=== PATIENT | male | born 1955 | race Caucasian/White ===

== ENCOUNTER → 2017-11-02 16:44 | Outpatient (CLI) | payer OTHER, SELFPAY ==
[2017-11-02 18:01] LABS: Absolute Lymphocyte Count 0.97 X10^3/ul (0.83-4.51); Absolute Neutrophil Count 2.5 X10^3/uL (2.0-7.7); Basophil# 0.01 X10^3/uL; Basophil% 0.3 % (0-1); Eosinophil# 0.09 X10^3/uL; Eosinophils% 2.3 % (0-5); Hematocrit 49.6 % (40-54); Hemoglobin 16.3 g/dl (13.0-16.5); Lymphocyte # 0.97 X10^3/ul (4.0); Lymphocyte % 24.6 % (19-41); Mean Corp Hgb Conc 32.9 g/gl (32-36); Mean Corpuscular Volume 91.2 fL (80-94); Mean Platelet Vol. 9.8 fl (6.2-12.0); Monocyte# 0.32 X10^3/uL; Monocyte% 8.1 % (0-10); Neutrophil # 2.54 X10^3/uL (2.7-7.7); Neutrophil % 64.4 % (47-70); Platelet Count 200 K/mm3 (150-450); RBC Distribution Width CV 14.3 % (11.6-14.6); RBC Distribution Width SD 46.8 fl (35.1-43.9); Red Blood Count 5.44 M/mm3 (4.6-6.2); White Blood Count 3.9 K/mm3 (4.4-11.0)
[2017-11-02 18:21] LABS: ALB/GLOB Ratio 0.7 RATIO (0.9-2.4); AST(SGOT) 25 U/L (15-37); Alanine Aminotransfer ALT/SGPT 32 U/L (16-61); Albumin, Serum 3.6 g/dL (3.2-5.0); Alkaline Phosphatase 69 U/L (45-117); Anion Gap 6 (5-15); BUN 16 mg/dL (7-18); BUN/Creat Ratio 13.7 RATIO (10-20); Calcium,Total 9.5 mg/dL (8.5-10.1); Chloride 103 mmol/L (98-107); Creatinine, Serum 1.17 mg/dL (0.70-1.30); EST Glomerular Filtration Rate 67 mL/min (>60); Est Glom Filt Rate - Afr Amer 81 mL/min (>60); Globulin 4.9 g/dL (2.2-4.2); Glucose 74 mg/dL (74-106); Potassium 4.3 mmol/L (3.5-5.1); Protein, Total 8.5 g/dL (6.4-8.2); Sodium Level 137 mmol/L (136-145)
[2017-11-02 18:22] LABS: POSITIVE COUNT NO; POSITIVE DIFFERENTIAL NO; POSITIVE MORPHOLOGY NO
== END ==
PROVIDERS: Family Provider Internal Medicine; PCP Internal Medicine; Visit Provider Internal Medicine Rheumatology
DX: M06.4 Inflammatory polyarthropathy (principal); Z79.899 Other long term (current) drug therapy; K50.90 Crohn's disease, unspecified, without complications; H18.51 Endothelial corneal dystrophy
CPT/HCPCS: 36415; 80053; 85025

== ENCOUNTER → 2018-01-27 16:14 | Outpatient (CLI) | payer OTHER, SELFPAY ==
[2018-01-27 17:36] LABS: Absolute Lymphocyte Count 1.06 X10^3/ul (0.83-4.51); Basophil# 0.02 X10^3/uL; Basophil% 0.4 % (0-1); Eosinophils% 2.2 % (0-5); Hematocrit 46.3 % (40-54); Hemoglobin 16.1 g/dl (13.0-16.5); Lymphocyte # 1.06 X10^3/ul (4.0); Lymphocyte % 22.8 % (19-41); Mean Corp Hgb Conc 34.8 g/gl (32-36); Mean Corpuscular Hgb 31.6 pg (27.0-32.0); Mean Platelet Vol. 9.5 fl (6.2-12.0); Monocyte% 10.8 % (0-10); Neutrophil # 2.95 X10^3/uL (2.7-7.7); Neutrophil % 63.6 % (47-70); Platelet Count 209 K/mm3 (150-450); RBC Distribution Width SD 45.7 fl (35.1-43.9); Red Blood Count 5.09 M/mm3 (4.6-6.2); White Blood Count 4.6 K/mm3 (4.4-11.0)
[2018-01-27 17:37] LABS: POSITIVE COUNT NO; POSITIVE DIFFERENTIAL NO; POSITIVE MORPHOLOGY NO
[2018-01-27 17:47] LABS: ALB/GLOB Ratio 0.9 RATIO (0.9-2.4); AST(SGOT) 26 U/L (15-37); Alanine Aminotransfer ALT/SGPT 26 U/L (16-61); Albumin, Serum 3.8 g/dL (3.2-5.0); Alkaline Phosphatase 67 U/L (45-117); Anion Gap 8 (5-15); BUN 18 mg/dL (7-18); BUN/Creat Ratio 19.2 RATIO (10-20); Chloride 105 mmol/L (98-107); Creatinine, Serum 0.94 mg/dL (0.70-1.30); EST Glomerular Filtration Rate 87 mL/min (>60); Est Glom Filt Rate - Afr Amer 105 mL/min (>60); Globulin 4.3 g/dL (2.2-4.2); Glucose 86 mg/dL (74-106); Protein, Total 8.1 g/dL (6.4-8.2); Sodium Level 139 mmol/L (136-145)
== END ==
PROVIDERS: Family Provider Internal Medicine; PCP Internal Medicine; Visit Provider Internal Medicine Rheumatology
DX: M06.4 Inflammatory polyarthropathy (principal); Z79.899 Other long term (current) drug therapy; K50.90 Crohn's disease, unspecified, without complications; H18.51 Endothelial corneal dystrophy
CPT/HCPCS: 36415; 80053; 85025

== ENCOUNTER → 2018-05-08 16:29 | Outpatient (CLI) | payer OTHER, SELFPAY ==
[2018-05-08 18:02] LABS: Absolute Lymphocyte Count 1.12 X10^3/ul (0.83-4.51); Absolute Neutrophil Count 3.4 X10^3/uL (2.0-7.7); Basophil# 0.01 X10^3/uL; Basophil% 0.2 % (0-1); Eosinophil# 0.06 X10^3/uL; Eosinophils% 1.2 % (0-5); Hematocrit 48.4 % (40-54); Hemoglobin 16.3 g/dl (13.0-16.5); Lymphocyte # 1.12 X10^3/ul (4.0); Lymphocyte % 22.1 % (19-41); Mean Corp Hgb Conc 33.7 g/gl (32-36); Mean Platelet Vol. 10.3 fl (6.2-12.0); Monocyte# 0.43 X10^3/uL; Monocyte% 8.5 % (0-10); Neutrophil # 3.44 X10^3/uL (2.7-7.7); Neutrophil % 67.8 % (47-70); Platelet Count 181 K/mm3 (150-450); RBC Distribution Width CV 13.7 % (11.6-14.6); RBC Distribution Width SD 45.6 fl (35.1-43.9); Red Blood Count 5.26 M/mm3 (4.6-6.2); White Blood Count 5.1 K/mm3 (4.4-11.0)
[2018-05-08 18:03] LABS: POSITIVE COUNT NO; POSITIVE DIFFERENTIAL NO; POSITIVE MORPHOLOGY NO
[2018-05-08 18:38] LABS: ALB/GLOB Ratio 0.9 RATIO (0.9-2.4); AST(SGOT) 25 U/L (15-37); Alanine Aminotransfer ALT/SGPT 28 U/L (16-61); Albumin, Serum 3.6 g/dL (3.2-5.0); Alkaline Phosphatase 76 U/L (45-117); Anion Gap 8 (5-15); BUN 15 mg/dL (7-18); BUN/Creat Ratio 16.9 RATIO (10-20); Chloride 105 mmol/L (98-107); Creatinine, Serum 0.89 mg/dL (0.70-1.30); EST Glomerular Filtration Rate 92 mL/min (>60); Est Glom Filt Rate - Afr Amer 112 mL/min (>60); Globulin 4.2 g/dL (2.2-4.2); Glucose 92 mg/dL (74-106); Potassium 3.6 mmol/L (3.5-5.1); Protein, Total 7.8 g/dL (6.4-8.2); Sodium Level 139 mmol/L (136-145)
== END ==
PROVIDERS: Family Provider Internal Medicine; PCP Internal Medicine; Visit Provider Internal Medicine Rheumatology
DX: M06.4 Inflammatory polyarthropathy (principal); Z79.899 Other long term (current) drug therapy; K50.90 Crohn's disease, unspecified, without complications; H18.51 Endothelial corneal dystrophy
CPT/HCPCS: 36415; 80053; 85025

== ENCOUNTER → 2018-07-19 11:46 | Outpatient (CLI) | payer OTHER, SELFPAY ==
[2018-07-19 14:35] LABS: Absolute Lymphocyte Count 0.77 X10^3/ul (0.83-4.51); Absolute Neutrophil Count 3.3 X10^3/uL (2.0-7.7); Basophil# 0.02 X10^3/uL; Basophil% 0.4 % (0-1); Eosinophil# 0.09 X10^3/uL; Eosinophils% 1.9 % (0-5); Hematocrit 50.3 % (40-54); Hemoglobin 16.8 g/dl (13.0-16.5); Lymphocyte # 0.77 X10^3/ul (4.0); Lymphocyte % 15.8 % (19-41); Mean Corp Hgb Conc 33.4 g/gl (32-36); Mean Corpuscular Hgb 31.4 pg (27.0-32.0); Mean Platelet Vol. 9.8 fl (6.2-12.0); Monocyte# 0.68 X10^3/uL; Neutrophil # 3.29 X10^3/uL (2.7-7.7); Neutrophil % 67.7 % (47-70); Platelet Count 179 K/mm3 (150-450); RBC Distribution Width CV 13.8 % (11.6-14.6); RBC Distribution Width SD 46.5 fl (35.1-43.9); Red Blood Count 5.35 M/mm3 (4.6-6.2); White Blood Count 4.9 K/mm3 (4.4-11.0)
[2018-07-19 14:55] LABS: POSITIVE COUNT NO; POSITIVE DIFFERENTIAL NO; POSITIVE MORPHOLOGY NO
[2018-07-19 15:00] LABS: AST(SGOT) 39 U/L (15-37); Alanine Aminotransfer ALT/SGPT 34 U/L (16-61); Albumin, Serum 3.8 g/dL (3.2-5.0); Alkaline Phosphatase 75 U/L (45-117); Anion Gap 10 (5-15); BUN 14 mg/dL (7-18); BUN/Creat Ratio 16.8 RATIO (10-20); Chloride 104 mmol/L (98-107); Creatinine, Serum 0.84 mg/dL (0.70-1.30); EST Glomerular Filtration Rate 99 mL/min (>60); Est Glom Filt Rate - Afr Amer 120 mL/min (>60); Glucose 94 mg/dL (74-106); Potassium 4.3 mmol/L (3.5-5.1); Protein, Total 7.8 g/dL (6.4-8.2); Sodium Level 136 mmol/L (136-145)
== END ==
PROVIDERS: Family Provider Internal Medicine; PCP Internal Medicine; Referring Provider Internal Medicine Rheumatology; Visit Provider Internal Medicine Rheumatology
DX: M06.4 Inflammatory polyarthropathy (principal); Z79.899 Other long term (current) drug therapy; K50.90 Crohn's disease, unspecified, without complications; H18.51 Endothelial corneal dystrophy
CPT/HCPCS: 36415; 80053; 85025

== ENCOUNTER → 2018-10-16 10:14 | Outpatient (CLI) | payer OTHER, SELFPAY ==
[2018-10-16 12:45] LABS: Absolute Lymphocyte Count 0.93 X10^3/ul (0.83-4.51); Absolute Neutrophil Count 3.6 X10^3/uL (2.0-7.7); Basophil# 0.02 X10^3/uL; Basophil% 0.4 % (0-1); Eosinophil# 0.06 X10^3/uL; Eosinophils% 1.2 % (0-5); Hematocrit 47.4 % (40-54); Hemoglobin 16.3 g/dl (13.0-16.5); Lymphocyte # 0.93 X10^3/ul (4.0); Lymphocyte % 17.9 % (19-41); Mean Corp Hgb Conc 34.4 g/gl (32-36); Mean Corpuscular Hgb 31.8 pg (27.0-32.0); Mean Corpuscular Volume 92.4 fL (80-94); Monocyte# 0.61 X10^3/uL; Monocyte% 11.8 % (0-10); Neutrophil # 3.56 X10^3/uL (2.7-7.7); Neutrophil % 68.5 % (47-70); Platelet Count 199 K/mm3 (150-450); RBC Distribution Width CV 13.8 % (11.6-14.6); RBC Distribution Width SD 45.1 fl (35.1-43.9); Red Blood Count 5.13 M/mm3 (4.6-6.2); White Blood Count 5.2 K/mm3 (4.4-11.0)
[2018-10-16 12:46] LABS: POSITIVE COUNT NO; POSITIVE DIFFERENTIAL NO; POSITIVE MORPHOLOGY NO
[2018-10-16 12:50] LABS: ALB/GLOB Ratio 0.9 RATIO (0.9-2.4); AST(SGOT) 28 U/L (15-37); Alanine Aminotransfer ALT/SGPT 33 U/L (16-61); Albumin, Serum 3.7 g/dL (3.2-5.0); Alkaline Phosphatase 68 U/L (45-117); Anion Gap 6 (5-15); BUN 14 mg/dL (7-18); BUN/Creat Ratio 15.8 RATIO (10-20); Calcium,Total 8.8 mg/dL (8.5-10.1); Chloride 110 mmol/L (98-107); Creatinine, Serum 0.89 mg/dL (0.70-1.30); EST Glomerular Filtration Rate 92 mL/min (>60); Est Glom Filt Rate - Afr Amer 112 mL/min (>60); Globulin 4.2 g/dL (2.2-4.2); Glucose 85 mg/dL (74-106); Protein, Total 7.9 g/dL (6.4-8.2); Sodium Level 140 mmol/L (136-145)
== END ==
PROVIDERS: Family Provider Internal Medicine; PCP Internal Medicine; Referring Provider Internal Medicine Rheumatology; Visit Provider Internal Medicine Rheumatology
DX: M06.4 Inflammatory polyarthropathy (principal); Z79.899 Other long term (current) drug therapy; K50.90 Crohn's disease, unspecified, without complications; H18.51 Endothelial corneal dystrophy
CPT/HCPCS: 36415; 80053; 85025

== ENCOUNTER → 2019-01-18 | Outpatient (CLI) | payer OTHER, SELFPAY ==
[2019-01-18 17:58] LABS: Absolute Lymphocyte Count 1.03 X10^3/ul (0.83-4.51); Absolute Neutrophil Count 2.7 X10^3/uL (2.0-7.7); Basophil# 0.02 X10^3/uL; Basophil% 0.5 % (0-1); Eosinophil# 0.09 X10^3/uL; Eosinophils% 2.2 % (0-5); Hematocrit 45.7 % (40-54); Lymphocyte # 1.03 X10^3/ul (4.0); Lymphocyte % 25.2 % (19-41); Mean Corpuscular Hgb 32.3 pg (27.0-32.0); Mean Corpuscular Volume 92.1 fL (80-94); Mean Platelet Vol. 9.6 fl (6.2-12.0); Monocyte# 0.22 X10^3/uL; Monocyte% 5.4 % (0-10); Neutrophil # 2.72 X10^3/uL (2.7-7.7); Neutrophil % 66.7 % (47-70); POSITIVE COUNT NO; POSITIVE DIFFERENTIAL NO; POSITIVE MORPHOLOGY NO; Platelet Count 196 K/mm3 (150-450); RBC Distribution Width CV 14.5 % (11.6-14.6); RBC Distribution Width SD 47.6 fl (35.1-43.9); Red Blood Count 4.96 M/mm3 (4.6-6.2); White Blood Count 4.1 K/mm3 (4.4-11.0)
[2019-01-18 18:21] LABS: ALB/GLOB Ratio 0.9 RATIO (0.9-2.4); AST(SGOT) 38 U/L (15-37); Alanine Aminotransfer ALT/SGPT 45 U/L (16-61); Albumin, Serum 3.7 g/dL (3.2-5.0); Alkaline Phosphatase 74 U/L (45-117); Anion Gap 9 (5-15); BUN 15 mg/dL (7-18); BUN/Creat Ratio 16.1 RATIO (10-20); Calcium,Total 8.9 mg/dL (8.5-10.1); Chloride 109 mmol/L (98-107); Creatinine, Serum 0.93 mg/dL (0.70-1.30); EST Glomerular Filtration Rate 87 mL/min (>60); Est Glom Filt Rate - Afr Amer 105 mL/min (>60); Globulin 4.1 g/dL (2.2-4.2); Glucose 79 mg/dL (74-106); Protein, Total 7.8 g/dL (6.4-8.2); Sodium Level 141 mmol/L (136-145)
== END | disposition home or self-care (01) ==
LOC: MTLAB 14:47
PROVIDERS: Family Provider Internal Medicine; PCP Internal Medicine; Referring Provider Internal Medicine Rheumatology; Visit Provider Internal Medicine Rheumatology
DX: M06.4 Inflammatory polyarthropathy (principal); Z79.899 Other long term (current) drug therapy; K50.90 Crohn's disease, unspecified, without complications; H18.51 Endothelial corneal dystrophy
CPT/HCPCS: 36415; 80053; 85025

== ENCOUNTER → 2019-04-17 | Outpatient (CLI) | payer OTHER, SELFPAY ==
[2019-04-17 17:50] LABS: Absolute Lymphocyte Count 0.98 X10^3/uL (0.83-4.51); Absolute Neutrophil Count 3.4 X10^3/uL (2.0-7.7); Basophil# 0.02 X10^3/uL; Basophil% 0.4 % (0-1); Eosinophil# 0.11 X10^3/uL; Eosinophils% 2.1 % (0-5); Hematocrit 45.9 % (40-54); Hemoglobin 15.5 g/dL (13.0-16.5); Lymphocyte # 0.98 X10^3/ul (4.0); Lymphocyte % 18.8 % (19-41); Mean Corp Hgb Conc 33.8 g/dL (32-36); Mean Corpuscular Hgb 32.2 pg (27.0-32.0); Mean Corpuscular Volume 95.4 fL (80-94); Mean Platelet Vol. 9.6 fl (6.2-12.0); Monocyte# 0.66 X10^3/uL; Monocyte% 12.7 % (0-10); NRBC Flagged by Analyzer 0 % (0-5); Neutrophil # 3.41 X10^3/uL (2.7-7.7); Neutrophil % 65.6 % (47-70); Platelet Count 203 K/mm3 (150-450); RBC Distribution Width CV 13.3 % (11.6-14.6); RBC Distribution Width SD 46.6 fl (35.1-43.9); Red Blood Count 4.81 M/mm3 (4.6-6.2); White Blood Count 5.2 K/mm3 (4.4-11.0)
[2019-04-17 18:02] LABS: ALB/GLOB Ratio 0.9 RATIO (0.9-2.4); AST(SGOT) 23 U/L (15-37); Alanine Aminotransfer ALT/SGPT 31 U/L (16-61); Albumin, Serum 3.4 g/dL (3.2-5.0); Alkaline Phosphatase 73 U/L (45-117); Anion Gap 5 (5-15); BUN 13 mg/dL (7-18); BUN/Creat Ratio 14.4 RATIO (10-20); Calcium,Total 8.9 mg/dL (8.5-10.1); Chloride 110 mmol/L (98-107); EST Glomerular Filtration Rate 90 mL/min (>60); Est Glom Filt Rate - Afr Amer 109 mL/min (>60); Globulin 3.8 g/dL (2.2-4.2); Glucose 112 mg/dL (74-106); Potassium 3.8 mmol/L (3.5-5.1); Protein, Total 7.2 g/dL (6.4-8.2); Sodium Level 142 mmol/L (136-145)
== END | disposition home or self-care (01) ==
LOC: MTLAB 16:16
PROVIDERS: Family Provider Internal Medicine; PCP Internal Medicine; Referring Provider Internal Medicine Rheumatology; Visit Provider Internal Medicine Rheumatology
DX: M06.4 Inflammatory polyarthropathy (principal); Z79.899 Other long term (current) drug therapy; K50.90 Crohn's disease, unspecified, without complications; H18.51 Endothelial corneal dystrophy
CPT/HCPCS: 36415; 80053; 85025

== ENCOUNTER → 2019-07-11 09:23 | Outpatient (CLI) | payer OTHER, SELFPAY ==
[2019-07-11 12:06] LABS: Absolute Lymphocyte Count 0.87 X10^3/uL (0.83-4.51); Absolute Neutrophil Count 6.1 X10^3/uL (2.0-7.7); Basophil# 0.04 X10^3/uL; Basophil% 0.5 % (0-1); Eosinophil# 0.12 X10^3/uL; Eosinophils% 1.4 % (0-5); Hematocrit 53.2 % (40-54); Hemoglobin 17.6 g/dL (13.0-16.5); Lymphocyte # 0.87 X10^3/ul (4.0); Lymphocyte % 10.2 % (19-41); Mean Corp Hgb Conc 33.1 g/dL (32-36); Mean Corpuscular Hgb 31.8 pg (27.0-32.0); Mean Platelet Vol. 10.1 fl (6.2-12.0); Monocyte# 1.25 X10^3/uL; Monocyte% 14.7 % (0-10); NRBC Flagged by Analyzer 0 % (0-5); Neutrophil # 6.14 X10^3/uL (2.7-7.7); Neutrophil % 72.4 % (47-70); Platelet Count 196 K/mm3 (150-450); RBC Distribution Width CV 14.3 % (11.6-14.6); RBC Distribution Width SD 50.2 fl (35.1-43.9); Red Blood Count 5.54 M/mm3 (4.6-6.2); White Blood Count 8.5 K/mm3 (4.4-11.0)
[2019-07-11 12:44] LABS: ALB/GLOB Ratio 0.8 RATIO (0.9-2.4); AST(SGOT) 22 U/L (15-37); Alanine Aminotransfer ALT/SGPT 27 U/L (16-61); Albumin, Serum 3.7 g/dL (3.2-5.0); Alkaline Phosphatase 79 U/L (45-117); Anion Gap 9 (5-15); BUN 14 mg/dL (7-18); BUN/Creat Ratio 14.5 RATIO (10-20); Calcium,Total 9.4 mg/dL (8.5-10.1); Chloride 105 mmol/L (98-107); Creatinine, Serum 0.96 mg/dL (0.70-1.30); EST Glomerular Filtration Rate 83 mL/min (>60); Est Glom Filt Rate - Afr Amer 101 mL/min (>60); Globulin 4.5 g/dL (2.2-4.2); Glucose 71 mg/dL (74-106); Potassium 3.9 mmol/L (3.5-5.1); Protein, Total 8.2 g/dL (6.4-8.2); Sodium Level 141 mmol/L (136-145)
== END ==
PROVIDERS: Family Provider Internal Medicine; PCP Internal Medicine; Referring Provider Internal Medicine Rheumatology; Visit Provider Internal Medicine Rheumatology
DX: M06.4 Inflammatory polyarthropathy (principal); Z79.899 Other long term (current) drug therapy; K50.90 Crohn's disease, unspecified, without complications; H18.51 Endothelial corneal dystrophy
CPT/HCPCS: 36415; 80053; 85025

== ENCOUNTER → 2019-10-11 16:13 | Outpatient (CLI) | payer OTHER, SELFPAY ==
[2019-10-11 17:47] LABS: Absolute Lymphocyte Count 1.08 X10^3/uL (0.83-4.51); Absolute Neutrophil Count 2.7 X10^3/uL (2.0-7.7); Basophil# 0.03 X10^3/uL; Basophil% 0.7 % (0-1); Eosinophil# 0.08 X10^3/uL; Eosinophils% 1.8 % (0-5); Hematocrit 50.7 % (40-54); Hemoglobin 16.3 g/dL (13.0-16.5); Lymphocyte # 1.08 X10^3/ul (4.0); Lymphocyte % 24.4 % (19-41); Mean Corp Hgb Conc 32.1 g/dL (32-36); Mean Corpuscular Hgb 30.6 pg (27.0-32.0); Mean Corpuscular Volume 95.3 fL (80-94); Mean Platelet Vol. 9.7 fl (6.2-12.0); Monocyte# 0.52 X10^3/uL; Monocyte% 11.7 % (0-10); NRBC Flagged by Analyzer 0 % (0-5); Neutrophil % 60.9 % (47-70); Platelet Count 205 K/mm3 (150-450); RBC Distribution Width CV 13.5 % (11.6-14.6); RBC Distribution Width SD 46.8 fl (35.1-43.9); Red Blood Count 5.32 M/mm3 (4.6-6.2); White Blood Count 4.4 K/mm3 (4.4-11.0)
[2019-10-11 17:59] LABS: ALB/GLOB Ratio 0.9 RATIO (0.9-2.4); AST(SGOT) 30 U/L (15-37); Alanine Aminotransfer ALT/SGPT 50 U/L (16-61); Albumin, Serum 3.8 g/dL (3.2-5.0); Alkaline Phosphatase 76 U/L (45-117); Anion Gap 5 (5-15); BUN 11 mg/dL (7-18); BUN/Creat Ratio 11.7 RATIO (10-20); Calcium,Total 9.3 mg/dL (8.5-10.1); Chloride 105 mmol/L (98-107); Creatinine, Serum 0.94 mg/dL (0.70-1.30); EST Glomerular Filtration Rate 86 mL/min (>60); Est Glom Filt Rate - Afr Amer 104 mL/min (>60); Globulin 4.1 g/dL (2.2-4.2); Glucose 91 mg/dL (74-106); Potassium 3.9 mmol/L (3.5-5.1); Protein, Total 7.9 g/dL (6.4-8.2); Sodium Level 140 mmol/L (136-145)
== END ==
PROVIDERS: PCP Internal Medicine; Referring Provider Internal Medicine Rheumatology; Visit Provider Internal Medicine Rheumatology
DX: M06.4 Inflammatory polyarthropathy (principal); Z79.899 Other long term (current) drug therapy; K50.90 Crohn's disease, unspecified, without complications; H18.51 Endothelial corneal dystrophy
CPT/HCPCS: 36415; 80053; 85025

== ENCOUNTER → 2020-01-29 16:29 | Outpatient (CLI) | payer OTHER, SELFPAY ==
[2020-01-29 17:50] LABS: Absolute Lymphocyte Count 0.86 X10^3/uL (0.83-4.51); Absolute Neutrophil Count 4.3 X10^3/uL (2.0-7.7); Basophil# 0.03 X10^3/uL; Basophil% 0.5 % (0-1); Eosinophil# 0.15 X10^3/uL; Eosinophils% 2.4 % (0-5); Hemoglobin 15.9 g/dL (13.0-16.5); Lymphocyte # 0.86 X10^3/ul (4.0); Lymphocyte % 13.9 % (19-41); Mean Corp Hgb Conc 33.1 g/dL (32-36); Mean Corpuscular Hgb 30.8 pg (27.0-32.0); Mean Platelet Vol. 9.6 fl (6.2-12.0); Monocyte# 0.87 X10^3/uL; Monocyte% 14.1 % (0-10); NRBC Flagged by Analyzer 0 % (0-5); Neutrophil # 4.25 X10^3/uL (2.7-7.7); Neutrophil % 68.9 % (47-70); Platelet Count 214 K/mm3 (150-450); RBC Distribution Width CV 13.3 % (11.6-14.6); RBC Distribution Width SD 45.3 fl (35.1-43.9); Red Blood Count 5.16 M/mm3 (4.6-6.2); White Blood Count 6.2 K/mm3 (4.4-11.0)
[2020-01-29 18:26] LABS: ALB/GLOB Ratio 0.9 RATIO (0.9-2.4); AST(SGOT) 27 U/L (15-37); Alanine Aminotransfer ALT/SGPT 39 U/L (16-61); Albumin, Serum 3.7 g/dL (3.2-5.0); Alkaline Phosphatase 72 U/L (45-117); Anion Gap 7 (5-15); BUN 18 mg/dL (7-18); Calcium,Total 9.6 mg/dL (8.5-10.1); Chloride 105 mmol/L (98-107); Creatinine, Serum 1.06 mg/dL (0.70-1.30); EST Glomerular Filtration Rate 75 mL/min (>60); Est Glom Filt Rate - Afr Amer 90 mL/min (>60); Globulin 4.3 g/dL (2.2-4.2); Glucose 117 mg/dL (74-106); Potassium 3.8 mmol/L (3.5-5.1); Sodium Level 139 mmol/L (136-145)
== END ==
PROVIDERS: PCP Internal Medicine; Referring Provider Internal Medicine Rheumatology; Visit Provider Internal Medicine Rheumatology
DX: M06.4 Inflammatory polyarthropathy (principal); Z79.899 Other long term (current) drug therapy; K50.90 Crohn's disease, unspecified, without complications; H18.51 Endothelial corneal dystrophy
CPT/HCPCS: 36415; 80053; 85025

== ENCOUNTER → 2020-06-10 16:22 | Outpatient (CLI) | payer OTHER, SELFPAY ==
[2020-06-10 17:42] LABS: Absolute Lymphocyte Count 1.09 X10^3/uL (0.83-4.51); Basophil# 0.02 X10^3/uL; Basophil% 0.3 % (0-1); Eosinophil# 0.06 X10^3/uL; Eosinophils% 0.9 % (0-5); Hematocrit 47.7 % (40-54); Hemoglobin 15.7 g/dL (13.0-16.5); Lymphocyte # 1.09 X10^3/ul (4.0); Lymphocyte % 15.5 % (19-41); Mean Corp Hgb Conc 32.9 g/dL (32-36); Mean Corpuscular Volume 94.1 fL (80-94); Mean Platelet Vol. 9.6 fl (6.2-12.0); Monocyte# 0.87 X10^3/uL; Monocyte% 12.4 % (0-10); NRBC Flagged by Analyzer 0 % (0-5); Neutrophil # 4.98 X10^3/uL (2.7-7.7); Neutrophil % 70.8 % (47-70); Platelet Count 197 K/mm3 (150-450); RBC Distribution Width CV 13.7 % (11.6-14.6); RBC Distribution Width SD 46.8 fl (35.1-43.9); Red Blood Count 5.07 M/mm3 (4.6-6.2)
[2020-06-10 18:35] LABS: AST(SGOT) 30 U/L (15-37); Alanine Aminotransfer ALT/SGPT 36 U/L (16-61); Albumin, Serum 3.7 g/dL (3.2-5.0); Alkaline Phosphatase 63 U/L (45-117); Anion Gap 7 (5-15); BUN 17 mg/dL (7-18); BUN/Creat Ratio 18.5 RATIO (10-20); Calcium,Total 9.1 mg/dL (8.5-10.1); Chloride 105 mmol/L (98-107); Creatinine, Serum 0.92 mg/dL (0.70-1.30); EST Glomerular Filtration Rate 88 mL/min (>60); Est Glom Filt Rate - Afr Amer 106 mL/min (>60); Globulin 3.8 g/dL (2.2-4.2); Glucose 87 mg/dL (74-106); Potassium 3.7 mmol/L (3.5-5.1); Protein, Total 7.5 g/dL (6.4-8.2); Sodium Level 138 mmol/L (136-145)
== END ==
PROVIDERS: PCP Internal Medicine; Referring Provider Internal Medicine Rheumatology; Visit Provider Internal Medicine Rheumatology
DX: M06.4 Inflammatory polyarthropathy (principal); Z79.899 Other long term (current) drug therapy; K50.90 Crohn's disease, unspecified, without complications; H18.513 Endothelial corneal dystrophy, bilateral
CPT/HCPCS: 36415; 80053; 85025

== ENCOUNTER → 2020-09-02 16:16 | Outpatient (CLI) | payer OTHER, SELFPAY ==
[2020-09-02 18:01] LABS: Absolute Lymphocyte Count 1.18 X10^3/uL (0.83-4.51); Absolute Neutrophil Count 5.1 X10^3/uL (2.0-7.7); Basophil# 0.03 X10^3/uL; Basophil% 0.4 % (0-1); Eosinophil# 0.07 X10^3/uL; Hematocrit 51.2 % (40-54); Hemoglobin 16.8 g/dL (13.0-16.5); Lymphocyte # 1.18 X10^3/ul (4.0); Lymphocyte % 16.6 % (19-41); Mean Corp Hgb Conc 32.8 g/dL (32-36); Mean Corpuscular Hgb 31.3 pg (27.0-32.0); Mean Corpuscular Volume 95.3 fL (80-94); Monocyte# 0.74 X10^3/uL; Monocyte% 10.4 % (0-10); NRBC Flagged by Analyzer 0 % (0-5); Neutrophil # 5.05 X10^3/uL (2.7-7.7); Neutrophil % 71.2 % (47-70); Platelet Count 188 K/mm3 (150-450); RBC Distribution Width CV 13.6 % (11.6-14.6); Red Blood Count 5.37 M/mm3 (4.6-6.2); White Blood Count 7.1 K/mm3 (4.4-11.0)
[2020-09-02 18:15] LABS: AST(SGOT) 44 U/L (15-37); Alanine Aminotransfer ALT/SGPT 55 U/L (16-61); Alkaline Phosphatase 68 U/L (45-117); Anion Gap 7 (5-15); BUN 21 mg/dL (7-18); BUN/Creat Ratio 13.1 RATIO (10-20); Calcium,Total 9.5 mg/dL (8.5-10.1); Chloride 103 mmol/L (98-107); EST Glomerular Filtration Rate 46 mL/min (>60); Est Glom Filt Rate - Afr Amer 56 mL/min (>60); Globulin 4.1 g/dL (2.2-4.2); Glucose 80 mg/dL (74-106); Protein, Total 8.1 g/dL (6.4-8.2); Sodium Level 139 mmol/L (136-145)
== END ==
PROVIDERS: PCP Internal Medicine; Referring Provider Internal Medicine Rheumatology; Visit Provider Internal Medicine Rheumatology
DX: M06.4 Inflammatory polyarthropathy (principal); Z79.899 Other long term (current) drug therapy; K50.90 Crohn's disease, unspecified, without complications; H18.519 Endothelial corneal dystrophy, unspecified eye
CPT/HCPCS: 36415; 80053; 85025

== ENCOUNTER → 2020-10-16 16:19 | Outpatient (CLI) | payer OTHER, SELFPAY ==
[2020-10-16 17:53] LABS: Absolute Lymphocyte Count 1.28 X10^3/uL (0.83-4.51); Absolute Neutrophil Count 4.8 X10^3/uL (2.0-7.7); Basophil# 0.04 X10^3/uL; Basophil% 0.6 % (0-1); Eosinophil# 0.13 X10^3/uL; Eosinophils% 1.8 % (0-5); Hematocrit 50.8 % (40-54); Hemoglobin 16.7 g/dL (13.0-16.5); Lymphocyte # 1.28 X10^3/ul (4.0); Mean Corp Hgb Conc 32.9 g/dL (32-36); Mean Corpuscular Hgb 30.3 pg (27.0-32.0); Mean Corpuscular Volume 92.2 fL (80-94); Mean Platelet Vol. 9.9 fl (6.2-12.0); Monocyte# 0.86 X10^3/uL; Monocyte% 12.1 % (0-10); NRBC Flagged by Analyzer 0 % (0-5); Neutrophil # 4.77 X10^3/uL (2.7-7.7); Neutrophil % 67.2 % (47-70); Platelet Count 181 K/mm3 (150-450); RBC Distribution Width CV 12.5 % (11.6-14.6); RBC Distribution Width SD 42.5 fl (35.1-43.9); Red Blood Count 5.51 M/mm3 (4.6-6.2); White Blood Count 7.1 K/mm3 (4.4-11.0)
[2020-10-16 18:28] LABS: AST(SGOT) 29 U/L (15-37); Alanine Aminotransfer ALT/SGPT 32 U/L (16-61); Albumin, Serum 3.9 g/dL (3.2-5.0); Alkaline Phosphatase 69 U/L (45-117); Anion Gap 7 (5-15); BUN 14 mg/dL (7-18); BUN/Creat Ratio 15.5 RATIO (10-20); Calcium,Total 9.5 mg/dL (8.5-10.1); Chloride 104 mmol/L (98-107); EST Glomerular Filtration Rate 90 mL/min (>60); Est Glom Filt Rate - Afr Amer 108 mL/min (>60); Glucose 78 mg/dL (74-106); Potassium 3.8 mmol/L (3.5-5.1); Protein, Total 7.9 g/dL (6.4-8.2); Sodium Level 138 mmol/L (136-145)
== END ==
PROVIDERS: PCP Internal Medicine; Referring Provider Internal Medicine Rheumatology; Visit Provider Internal Medicine Rheumatology
DX: M06.4 Inflammatory polyarthropathy (principal); K50.90 Crohn's disease, unspecified, without complications; Z79.899 Other long term (current) drug therapy; H18.513 Endothelial corneal dystrophy, bilateral
CPT/HCPCS: 36415; 80053; 85025

== ENCOUNTER → 2021-01-12 16:13 | Outpatient (CLI) | payer OTHER, SELFPAY ==
[2021-01-12 17:30] LABS: Absolute Lymphocyte Count 1.09 X10^3/uL (0.83-4.51); Absolute Neutrophil Count 3.3 X10^3/uL (2.0-7.7); Basophil# 0.03 X10^3/uL; Basophil% 0.6 % (0-1); Eosinophil# 0.08 X10^3/uL; Eosinophils% 1.5 % (0-5); Hematocrit 47.5 % (40-54); Hemoglobin 15.6 g/dL (13.0-16.5); Lymphocyte # 1.09 X10^3/ul (0.83-4.51); Mean Corp Hgb Conc 32.8 g/dL (32-36); Mean Corpuscular Hgb 29.9 pg (27.0-32.0); Monocyte% 13.5 % (0-10); NRBC Flagged by Analyzer 0 % (0-5); Neutrophil # 3.29 X10^3/uL (2.7-7.7); Neutrophil % 63.2 % (47-70); Platelet Count 202 K/mm3 (150-450); RBC Distribution Width CV 13.2 % (11.6-14.6); RBC Distribution Width SD 43.6 fl (35.1-43.9); Red Blood Count 5.22 M/mm3 (4.6-6.2); White Blood Count 5.2 K/mm3 (4.4-11.0)
[2021-01-12 18:20] LABS: AST(SGOT) 39 U/L (15-37); Alanine Aminotransfer ALT/SGPT 34 U/L (16-61); Albumin, Serum 3.7 g/dL (3.2-5.0); Alkaline Phosphatase 70 U/L (45-117); Anion Gap 5 (5-15); BUN 13 mg/dL (7-18); Calcium,Total 9.2 mg/dL (8.5-10.1); Chloride 107 mmol/L (98-107); Creatinine, Serum 0.93 mg/dL (0.70-1.30); EST Glomerular Filtration Rate 87 mL/min (>60); Est Glom Filt Rate - Afr Amer 105 mL/min (>60); Globulin 3.8 g/dL (2.2-4.2); Glucose 73 mg/dL (74-106); Protein, Total 7.5 g/dL (6.4-8.2); Sodium Level 140 mmol/L (136-145)
== END ==
PROVIDERS: PCP Internal Medicine; Referring Provider Internal Medicine Rheumatology; Visit Provider Internal Medicine Rheumatology
DX: M06.4 Inflammatory polyarthropathy (principal); Z79.899 Other long term (current) drug therapy; K50.90 Crohn's disease, unspecified, without complications; H18.513 Endothelial corneal dystrophy, bilateral
CPT/HCPCS: 36415; 80053; 85025

== ENCOUNTER → 2021-03-11 16:18 | Outpatient (CLI) | payer OTHER, SELFPAY ==
[2021-03-11 17:49] LABS: Absolute Lymphocyte Count 1.12 X10^3/uL (0.83-4.51); Absolute Neutrophil Count 3.4 X10^3/uL (2.0-7.7); Basophil# 0.03 X10^3/uL; Basophil% 0.6 % (0-1); Eosinophils% 1.9 % (0-5); Hematocrit 49.9 % (40-54); Hemoglobin 16.5 g/dL (13.0-16.5); Lymphocyte # 1.12 X10^3/ul (0.83-4.51); Lymphocyte % 20.9 % (19-41); Mean Corp Hgb Conc 33.1 g/dL (32-36); Mean Corpuscular Hgb 30.1 pg (27.0-32.0); Mean Corpuscular Volume 91.1 fL (80-94); Mean Platelet Vol. 9.7 fl (6.2-12.0); Monocyte# 0.67 X10^3/uL; Monocyte% 12.5 % (0-10); NRBC Flagged by Analyzer 0 % (0-5); Neutrophil # 3.44 X10^3/uL (2.7-7.7); Neutrophil % 63.9 % (47-70); Platelet Count 205 K/mm3 (150-450); RBC Distribution Width CV 13.4 % (11.6-14.6); RBC Distribution Width SD 44.8 fl (35.1-43.9); Red Blood Count 5.48 M/mm3 (4.6-6.2); White Blood Count 5.4 K/mm3 (4.4-11.0)
[2021-03-11 18:17] LABS: ALB/GLOB Ratio 1.1 RATIO (0.9-2.4); AST(SGOT) 26 U/L (15-37); Alanine Aminotransfer ALT/SGPT 33 U/L (16-61); Albumin, Serum 3.9 g/dL (3.2-5.0); Alkaline Phosphatase 77 U/L (45-117); Anion Gap 6 (5-15); BUN 17 mg/dL (7-18); BUN/Creat Ratio 18.3 RATIO (10-20); Calcium,Total 9.1 mg/dL (8.5-10.1); Chloride 107 mmol/L (98-107); Creatinine, Serum 0.93 mg/dL (0.70-1.30); EST Glomerular Filtration Rate 87 mL/min (>60); Est Glom Filt Rate - Afr Amer 105 mL/min (>60); Globulin 3.7 g/dL (2.2-4.2); Glucose 80 mg/dL (74-106); Potassium 4.2 mmol/L (3.5-5.1); Protein, Total 7.6 g/dL (6.4-8.2); Sodium Level 140 mmol/L (136-145)
== END ==
PROVIDERS: PCP Internal Medicine; Referring Provider Internal Medicine Rheumatology; Visit Provider Internal Medicine Rheumatology
DX: M06.4 Inflammatory polyarthropathy (principal); Z79.899 Other long term (current) drug therapy; K50.90 Crohn's disease, unspecified, without complications
CPT/HCPCS: 36415; 80053; 85025

== ENCOUNTER → 2021-06-08 16:23 | Outpatient (CLI) | payer OTHER, SELFPAY ==
[2021-06-08 17:38] LABS: Absolute Lymphocyte Count 0.92 X10^3/uL (0.83-4.51); Absolute Neutrophil Count 3.8 X10^3/uL (2.0-7.7); Basophil# 0.02 X10^3/uL; Basophil% 0.4 % (0-1); Eosinophil# 0.08 X10^3/uL; Eosinophils% 1.4 % (0-5); Hemoglobin 16.5 g/dL (13.0-16.5); Lymphocyte # 0.92 X10^3/ul (0.83-4.51); Lymphocyte % 16.5 % (19-41); Mean Corp Hgb Conc 33.7 g/dL (32-36); Mean Corpuscular Hgb 30.4 pg (27.0-32.0); Mean Corpuscular Volume 90.4 fL (80-94); Mean Platelet Vol. 9.7 fl (6.2-12.0); Monocyte% 14.3 % (0-10); NRBC Flagged by Analyzer 0 % (0-5); Neutrophil # 3.76 X10^3/uL (2.7-7.7); Neutrophil % 67.2 % (47-70); Platelet Count 198 K/mm3 (150-450); RBC Distribution Width CV 13.2 % (11.6-14.6); RBC Distribution Width SD 43.5 fl (35.1-43.9); Red Blood Count 5.42 M/mm3 (4.6-6.2); White Blood Count 5.6 K/mm3 (4.4-11.0)
[2021-06-08 17:56] LABS: ALB/GLOB Ratio 0.9 RATIO (0.9-2.4); AST(SGOT) 25 U/L (15-37); Alanine Aminotransfer ALT/SGPT 32 U/L (16-61); Albumin, Serum 3.7 g/dL (3.2-5.0); Alkaline Phosphatase 72 U/L (45-117); Anion Gap 7 (5-15); BUN 14 mg/dL (7-18); BUN/Creat Ratio 16.3 RATIO (10-20); Calcium,Total 9.3 mg/dL (8.5-10.1); Chloride 104 mmol/L (98-107); Creatinine, Serum 0.86 mg/dL (0.70-1.30); EST Glomerular Filtration Rate 95 mL/min (>60); Est Glom Filt Rate - Afr Amer 115 mL/min (>60); Globulin 4.2 g/dL (2.2-4.2); Glucose 77 mg/dL (74-106); Potassium 3.6 mmol/L (3.5-5.1); Protein, Total 7.9 g/dL (6.4-8.2); Sodium Level 138 mmol/L (136-145)
== END ==
PROVIDERS: PCP Internal Medicine; Referring Provider Internal Medicine Rheumatology; Visit Provider Internal Medicine Rheumatology
DX: M06.4 Inflammatory polyarthropathy (principal); Z79.899 Other long term (current) drug therapy; K50.90 Crohn's disease, unspecified, without complications; H18.513 Endothelial corneal dystrophy, bilateral
CPT/HCPCS: 36415; 80053; 85025

== ENCOUNTER → 2021-08-19 14:05 | Outpatient (CLI) | payer OTHER, SELFPAY ==
[2021-08-19 15:09] LABS: Absolute Lymphocyte Count 0.98 X10^3/uL (0.83-4.51); Absolute Neutrophil Count 5.4 X10^3/uL (2.0-7.7); Basophil# 0.02 X10^3/uL; Basophil% 0.3 % (0-1); Eosinophil# 0.04 X10^3/uL; Eosinophils% 0.6 % (0-5); Hematocrit 46.9 % (40-54); Hemoglobin 15.9 g/dL (13.0-16.5); Lymphocyte # 0.98 X10^3/ul (0.83-4.51); Lymphocyte % 14.4 % (19-41); Mean Corp Hgb Conc 33.9 g/dL (32-36); Mean Corpuscular Hgb 30.7 pg (27.0-32.0); Mean Corpuscular Volume 90.5 fL (80-94); Mean Platelet Vol. 9.5 fl (6.2-12.0); Monocyte% 5.9 % (0-10); NRBC Flagged by Analyzer 0 % (0-5); Neutrophil # 5.36 X10^3/uL (2.7-7.7); Neutrophil % 78.5 % (47-70); Platelet Count 204 K/mm3 (150-450); RBC Distribution Width CV 13.2 % (11.6-14.6); RBC Distribution Width SD 42.6 fl (35.1-43.9); Red Blood Count 5.18 M/mm3 (4.6-6.2); White Blood Count 6.8 K/mm3 (4.4-11.0)
[2021-08-19 15:37] LABS: ALB/GLOB Ratio 0.9 RATIO (0.9-2.4); AST(SGOT) 27 U/L (15-37); Alanine Aminotransfer ALT/SGPT 34 U/L (16-61); Albumin, Serum 3.6 g/dL (3.2-5.0); Alkaline Phosphatase 74 U/L (45-117); Anion Gap 5 (5-15); BUN 16 mg/dL (7-18); BUN/Creat Ratio 16.5 RATIO (10-20); Calcium,Total 9.3 mg/dL (8.5-10.1); Chloride 108 mmol/L (98-107); Creatinine, Serum 0.97 mg/dL (0.70-1.30); EST Glomerular Filtration Rate 83 mL/min (>60); Est Glom Filt Rate - Afr Amer 100 mL/min (>60); Glucose 133 mg/dL (74-106); Potassium 3.6 mmol/L (3.5-5.1); Protein, Total 7.6 g/dL (6.4-8.2); Sodium Level 139 mmol/L (136-145)
== END ==
PROVIDERS: PCP Internal Medicine; Referring Provider Internal Medicine Rheumatology; Visit Provider Internal Medicine Rheumatology
DX: M06.4 Inflammatory polyarthropathy (principal); Z79.899 Other long term (current) drug therapy; K50.90 Crohn's disease, unspecified, without complications; H18.513 Endothelial corneal dystrophy, bilateral
CPT/HCPCS: 36415; 80053; 85025

== ENCOUNTER 2021-11-17 16:13 | Outpatient (CLI) | payer OTHER, SELFPAY ==
[2021-11-17 17:43] LABS: Absolute Lymphocyte Count 1.13 X10^3/uL (0.83-4.51); Absolute Neutrophil Count 6.3 X10^3/uL (2.0-7.7); Basophil# 0.03 X10^3/uL; Basophil% 0.4 % (0-1); Eosinophil# 0.09 X10^3/uL; Eosinophils% 1.1 % (0-5); Hematocrit 50.8 % (40-54); Hemoglobin 17.5 g/dL (13.0-16.5); Lymphocyte # 1.13 X10^3/ul (0.83-4.51); Lymphocyte % 13.2 % (19-41); Mean Corp Hgb Conc 34.4 g/dL (32-36); Mean Corpuscular Hgb 31.8 pg (27.0-32.0); Mean Corpuscular Volume 92.4 fL (80-94); Mean Platelet Vol. 9.6 fl (6.2-12.0); Monocyte# 0.99 X10^3/uL; Monocyte% 11.6 % (0-10); NRBC Flagged by Analyzer 0 % (0-5); Neutrophil # 6.29 X10^3/uL (2.7-7.7); Neutrophil % 73.3 % (47-70); Platelet Count 211 K/mm3 (150-450); RBC Distribution Width CV 13.2 % (11.6-14.6); RBC Distribution Width SD 44.7 fl (35.1-43.9); White Blood Count 8.6 K/mm3 (4.4-11.0)
[2021-11-17 17:56] LABS: AST(SGOT) 31 U/L (15-37); Alanine Aminotransfer ALT/SGPT 34 U/L (16-61); Albumin, Serum 3.9 g/dL (3.2-5.0); Alkaline Phosphatase 64 U/L (45-117); Anion Gap 6 (5-15); BUN 16 mg/dL (7-18); BUN/Creat Ratio 17.7 RATIO (10-20); Calcium,Total 9.7 mg/dL (8.5-10.1); Chloride 106 mmol/L (98-107); EST Glomerular Filtration Rate 89 mL/min (>60); Est Glom Filt Rate - Afr Amer 108 mL/min (>60); Globulin 3.9 g/dL (2.2-4.2); Glucose 73 mg/dL (74-106); Protein, Total 7.8 g/dL (6.4-8.2); Sodium Level 138 mmol/L (136-145)
== END 2021-11-17 23:59 | disposition home or self-care (01) ==
LOC: MTLAB 16:15
PROVIDERS: PCP Internal Medicine; Referring Provider Internal Medicine Rheumatology; Visit Provider Internal Medicine Rheumatology
DX: M06.4 Inflammatory polyarthropathy (principal); K50.90 Crohn's disease, unspecified, without complications; Z79.899 Other long term (current) drug therapy; H18.513 Endothelial corneal dystrophy, bilateral
CPT/HCPCS: 36415; 80053; 85025

== ENCOUNTER → 2022-03-08 | Outpatient (CLI) | payer OTHER, SELFPAY ==
[2022-03-08 14:51] LABS: Absolute Lymphocyte Count 0.86 X10^3/uL (0.83-4.51); Absolute Neutrophil Count 2.5 X10^3/uL (2.0-7.7); Basophil# 0.03 X10^3/uL; Basophil% 0.8 % (0-1); Eosinophil# 0.06 X10^3/uL; Eosinophils% 1.6 % (0-5); Hematocrit 46.1 % (40-54); Hemoglobin 15.5 g/dL (13.0-16.5); Lymphocyte # 0.86 X10^3/ul (0.83-4.51); Lymphocyte % 22.3 % (19-41); Mean Corp Hgb Conc 33.6 g/dL (32-36); Mean Corpuscular Hgb 30.9 pg (27.0-32.0); Mean Platelet Vol. 9.7 fl (6.2-12.0); Monocyte# 0.41 X10^3/uL; Monocyte% 10.6 % (0-10); NRBC Flagged by Analyzer 0 % (0-5); Neutrophil # 2.48 X10^3/uL (2.7-7.7); Neutrophil % 64.4 % (47-70); Platelet Count 179 K/mm3 (150-450); RBC Distribution Width CV 13.3 % (11.6-14.6); RBC Distribution Width SD 44.9 fl (35.1-43.9); Red Blood Count 5.01 M/mm3 (4.6-6.2); White Blood Count 3.9 K/mm3 (4.4-11.0)
[2022-03-08 15:05] LABS: ALB/GLOB Ratio 1.1 RATIO (0.9-2.4); AST(SGOT) 30 U/L (15-37); Alanine Aminotransfer ALT/SGPT 31 U/L (16-61); Albumin, Serum 3.7 g/dL (3.2-5.0); Alkaline Phosphatase 56 U/L (45-117); Anion Gap 9 (5-15); BUN 14 mg/dL (7-18); BUN/Creat Ratio 14.8 RATIO (10-20); Calcium,Total 9.1 mg/dL (8.5-10.1); Chloride 105 mmol/L (98-107); Creatinine, Serum 0.95 mg/dL (0.70-1.30); EST Glomerular Filtration Rate 85 mL/min (>60); Est Glom Filt Rate - Afr Amer 102 mL/min (>60); Globulin 3.4 g/dL (2.2-4.2); Glucose 131 mg/dL (74-106); Potassium 3.7 mmol/L (3.5-5.1); Protein, Total 7.1 g/dL (6.4-8.2); Sodium Level 140 mmol/L (136-145)
== END | disposition home or self-care (01) ==
PROVIDERS: PCP Internal Medicine; Referring Provider Internal Medicine Rheumatology; Visit Provider Internal Medicine Rheumatology
DX: M06.4 Inflammatory polyarthropathy (principal); K50.90 Crohn's disease, unspecified, without complications; Z79.899 Other long term (current) drug therapy; H18.519 Endothelial corneal dystrophy, unspecified eye
CPT/HCPCS: 36415; 80053; 85025

== ENCOUNTER → 2022-06-03 | Outpatient (CLI) | payer MEDICARE, OTHER, SELFPAY ==
[2022-06-03 15:23] LABS: Absolute Lymphocyte Count 0.67 X10^3/uL (0.83-4.51); Absolute Neutrophil Count 2.4 X10^3/uL (2.0-7.7); Basophil# 0.02 X10^3/uL; Basophil% 0.5 % (0-1); Eosinophil# 0.13 X10^3/uL; Eosinophils% 3.5 % (0-5); Hematocrit 48.8 % (40-54); Hemoglobin 15.9 g/dL (13.0-16.5); Lymphocyte # 0.67 X10^3/ul (0.83-4.51); Lymphocyte % 18.1 % (19-41); Mean Corp Hgb Conc 32.6 g/dL (32-36); Mean Corpuscular Hgb 30.2 pg (27.0-32.0); Mean Corpuscular Volume 92.6 fL (80-94); Monocyte# 0.52 X10^3/uL; Monocyte% 14.1 % (0-10); NRBC Flagged by Analyzer 0 % (0-5); Neutrophil # 2.35 X10^3/uL (2.7-7.7); Neutrophil % 63.5 % (47-70); Platelet Count 186 K/mm3 (150-450); RBC Distribution Width CV 13.4 % (11.6-14.6); RBC Distribution Width SD 45.1 fl (35.1-43.9); Red Blood Count 5.27 M/mm3 (4.6-6.2); White Blood Count 3.7 K/mm3 (4.4-11.0)
[2022-06-03 15:45] LABS: ALB/GLOB Ratio 0.9 RATIO (0.9-2.4); AST(SGOT) 22 U/L (15-37); Alanine Aminotransfer ALT/SGPT 29 U/L (16-61); Albumin, Serum 3.5 g/dL (3.2-5.0); Alkaline Phosphatase 78 U/L (45-117); Anion Gap 6 (5-15); BUN 20 mg/dL (7-18); BUN/Creat Ratio 23.4 RATIO (10-20); Calcium,Total 9.4 mg/dL (8.5-10.1); Chloride 104 mmol/L (98-107); Creatinine, Serum 0.86 mg/dL (0.70-1.30); EST Glomerular Filtration Rate 95 mL/min (>60); Est Glom Filt Rate - Afr Amer 115 mL/min (>60); Globulin 3.9 g/dL (2.2-4.2); Glucose 76 mg/dL (74-106); Potassium 3.8 mmol/L (3.5-5.1); Protein, Total 7.4 g/dL (6.4-8.2); Sodium Level 138 mmol/L (136-145)
== END | disposition home or self-care (01) ==
LOC: MTLAB 11:14
PROVIDERS: PCP Internal Medicine; Referring Provider Internal Medicine Rheumatology; Visit Provider Internal Medicine Rheumatology
DX: M06.4 Inflammatory polyarthropathy (principal); K50.90 Crohn's disease, unspecified, without complications; H18.513 Endothelial corneal dystrophy, bilateral; Z90.49 Acquired absence of other specified parts of digestive tract; Z79.899 Other long term (current) drug therapy
CPT/HCPCS: 36415; 80053; 85025

== ENCOUNTER → 2022-08-17 | Outpatient (CLI) | payer MEDICARE, OTHER, SELFPAY ==
[2022-08-17 17:53] LABS: Absolute Lymphocyte Count 1.09 X10^3/uL (0.83-4.51); Absolute Neutrophil Count 4.6 X10^3/uL (2.0-7.7); Basophil# 0.02 X10^3/uL; Basophil% 0.3 % (0-1); Eosinophil# 0.02 X10^3/uL; Eosinophils% 0.3 % (0-5); Hemoglobin 16.7 g/dL (13.0-16.5); Lymphocyte # 1.09 X10^3/ul (0.83-4.51); Lymphocyte % 17.4 % (19-41); Mean Corp Hgb Conc 32.7 g/dL (32-36); Mean Corpuscular Hgb 30.2 pg (27.0-32.0); Mean Corpuscular Volume 92.2 fL (80-94); Mean Platelet Vol. 9.3 fl (6.2-12.0); NRBC Flagged by Analyzer 0 % (0-5); Neutrophil # 4.63 X10^3/uL (2.7-7.7); Neutrophil % 73.7 % (47-70); Platelet Count 174 K/mm3 (150-450); RBC Distribution Width CV 13.4 % (11.6-14.6); RBC Distribution Width SD 45.4 fl (35.1-43.9); Red Blood Count 5.53 M/mm3 (4.6-6.2); White Blood Count 6.3 K/mm3 (4.4-11.0)
[2022-08-17 18:35] LABS: ALB/GLOB Ratio 1.2 RATIO (0.9-2.4); AST(SGOT) 31 U/L (15-37); Alanine Aminotransfer ALT/SGPT 30 U/L (16-61); Albumin, Serum 4.1 g/dL (3.2-5.0); Alkaline Phosphatase 62 U/L (45-117); Anion Gap 9 (5-15); BUN 16 mg/dL (7-18); BUN/Creat Ratio 18.4 RATIO (10-20); Calcium,Total 9.1 mg/dL (8.5-10.1); Chloride 105 mmol/L (98-107); Creatinine, Serum 0.87 mg/dL (0.70-1.30); EST Glomerular Filtration Rate 93 mL/min (>60); Est Glom Filt Rate - Afr Amer 113 mL/min (>60); Globulin 3.4 g/dL (2.2-4.2); Glucose 80 mg/dL (74-106); Potassium 3.5 mmol/L (3.5-5.1); Protein, Total 7.5 g/dL (6.4-8.2); Sodium Level 140 mmol/L (136-145)
== END | disposition home or self-care (01) ==
LOC: MTLAB 14:44
PROVIDERS: PCP Internal Medicine; Referring Provider Internal Medicine Rheumatology; Visit Provider Internal Medicine Rheumatology
DX: Z79.899 Other long term (current) drug therapy (principal); M06.4 Inflammatory polyarthropathy; K50.90 Crohn's disease, unspecified, without complications; H18.513 Endothelial corneal dystrophy, bilateral
CPT/HCPCS: 36415; 80053; 85025

== ENCOUNTER → 2022-11-08 | Outpatient (CLI) | payer MEDICARE, OTHER, SELFPAY ==
[2022-11-08 15:20] LABS: Absolute Lymphocyte Count 0.93 X10^3/uL (0.83-4.51); Absolute Neutrophil Count 5.4 X10^3/uL (2.0-7.7); Basophil# 0.03 X10^3/uL; Basophil% 0.4 % (0-1); Eosinophil# 0.02 X10^3/uL; Eosinophils% 0.3 % (0-5); Hematocrit 52.5 % (40-54); Hemoglobin 17.1 g/dL (13.0-16.5); Lymphocyte # 0.93 X10^3/ul (0.83-4.51); Lymphocyte % 13.5 % (19-41); Mean Corp Hgb Conc 32.6 g/dL (32-36); Mean Corpuscular Hgb 30.9 pg (27.0-32.0); Mean Corpuscular Volume 94.9 fL (80-94); Mean Platelet Vol. 10.2 fl (6.2-12.0); Monocyte# 0.47 X10^3/uL; Monocyte% 6.8 % (0-10); NRBC Flagged by Analyzer 0 % (0-5); Neutrophil # 5.44 X10^3/uL (2.7-7.7); Neutrophil % 78.7 % (47-70); Platelet Count 155 K/mm3 (150-450); RBC Distribution Width CV 13.5 % (11.6-14.6); RBC Distribution Width SD 47.4 fl (35.1-43.9); Red Blood Count 5.53 M/mm3 (4.6-6.2); White Blood Count 6.9 K/mm3 (4.4-11.0)
[2022-11-08 16:04] LABS: AST(SGOT) 42 U/L (15-37); Alanine Aminotransfer ALT/SGPT 35 U/L (16-61); Albumin, Serum 3.9 g/dL (3.2-5.0); Alkaline Phosphatase 56 U/L (45-117); Anion Gap 6 (5-15); BUN 16 mg/dL (7-18); BUN/Creat Ratio 18.9 RATIO (10-20); Calcium,Total 9.5 mg/dL (8.5-10.1); Chloride 106 mmol/L (98-107); Creatinine, Serum 0.85 mg/dL (0.70-1.30); EST Glomerular Filtration Rate 96 mL/min (>60); Est Glom Filt Rate - Afr Amer 116 mL/min (>60); Globulin 4.1 g/dL (2.2-4.2); Glucose 67 mg/dL (74-106); Potassium 4.5 mmol/L (3.5-5.1); Sodium Level 138 mmol/L (136-145)
== END | disposition home or self-care (01) ==
PROVIDERS: PCP Internal Medicine; Visit Provider Internal Medicine Rheumatology
DX: M06.4 Inflammatory polyarthropathy (principal); K50.90 Crohn's disease, unspecified, without complications; Z79.899 Other long term (current) drug therapy; H18.513 Endothelial corneal dystrophy, bilateral; G47.33 Obstructive sleep apnea (adult) (pediatric)
CPT/HCPCS: 36415; 80053; 85025

== ENCOUNTER → 2022-12-29 | Outpatient (CLI) | payer MEDICARE, OTHER, SELFPAY ==
[2022-12-29 17:59] LABS: Absolute Lymphocyte Count 0.99 X10^3/uL (0.83-4.51); Absolute Neutrophil Count 4.4 X10^3/uL (2.0-7.7); Basophil# 0.03 X10^3/uL; Basophil% 0.5 % (0-1); Eosinophil# 0.04 X10^3/uL; Eosinophils% 0.7 % (0-5); Hematocrit 50.1 % (40-54); Hemoglobin 16.2 g/dL (13.0-16.5); Lymphocyte # 0.99 X10^3/ul (0.83-4.51); Lymphocyte % 16.2 % (19-41); Mean Corp Hgb Conc 32.3 g/dL (32-36); Mean Corpuscular Hgb 30.4 pg (27.0-32.0); Mean Platelet Vol. 10.2 fl (6.2-12.0); Monocyte# 0.61 X10^3/uL; NRBC Flagged by Analyzer 0 % (0-5); Neutrophil # 4.44 X10^3/uL (2.7-7.7); Neutrophil % 72.4 % (47-70); Platelet Count 188 K/mm3 (150-450); RBC Distribution Width CV 13.2 % (11.6-14.6); Red Blood Count 5.33 M/mm3 (4.6-6.2); White Blood Count 6.1 K/mm3 (4.4-11.0)
[2022-12-29 18:21] LABS: ALB/GLOB Ratio 1.1 RATIO (0.9-2.4); AST(SGOT) 37 U/L (15-37); Alanine Aminotransfer ALT/SGPT 28 U/L (16-61); Albumin, Serum 3.8 g/dL (3.2-5.0); Alkaline Phosphatase 56 U/L (45-117); Anion Gap 6 (5-15); BUN 16 mg/dL (7-18); BUN/Creat Ratio 16.1 RATIO (10-20); Calcium,Total 9.4 mg/dL (8.5-10.1); Chloride 105 mmol/L (98-107); Creatinine, Serum 0.99 mg/dL (0.70-1.30); EST Glomerular Filtration Rate 80 mL/min (>60); Est Glom Filt Rate - Afr Amer 97 mL/min (>60); Globulin 3.6 g/dL (2.2-4.2); Glucose 90 mg/dL (74-106); Potassium 4.3 mmol/L (3.5-5.1); Protein, Total 7.4 g/dL (6.4-8.2); Sodium Level 138 mmol/L (136-145)
== END | disposition home or self-care (01) ==
LOC: MTLAB 14:56
PROVIDERS: PCP Internal Medicine; Referring Provider Internal Medicine Rheumatology; Visit Provider Internal Medicine Rheumatology
DX: M06.4 Inflammatory polyarthropathy (principal); Z79.899 Other long term (current) drug therapy
CPT/HCPCS: 36415; 80053; 85025

== ENCOUNTER → 2023-03-31 | Outpatient (CLI) | payer MEDICARE, OTHER, SELFPAY ==
[2023-03-31 15:14] LABS: Absolute Lymphocyte Count 0.86 X10^3/uL (0.83-4.51); Absolute Neutrophil Count 4.1 X10^3/uL (2.0-7.7); Basophil# 0.01 X10^3/uL; Basophil% 0.2 % (0-1); Eosinophil# 0.09 X10^3/uL; Eosinophils% 1.6 % (0-5); Hematocrit 46.6 % (40-54); Hemoglobin 15.9 g/dL (13.0-16.5); Lymphocyte # 0.86 X10^3/ul (0.83-4.51); Lymphocyte % 15.4 % (19-41); Mean Corp Hgb Conc 34.1 g/dL (32-36); Mean Corpuscular Hgb 31.4 pg (27.0-32.0); Mean Corpuscular Volume 91.9 fL (80-94); Mean Platelet Vol. 9.8 fl (6.2-12.0); Monocyte# 0.56 X10^3/uL; NRBC Flagged by Analyzer 0 % (0-5); Neutrophil # 4.07 X10^3/uL (2.7-7.7); Neutrophil % 72.6 % (47-70); Platelet Count 175 K/mm3 (150-450); RBC Distribution Width CV 13.6 % (11.6-14.6); RBC Distribution Width SD 45.8 fl (35.1-43.9); Red Blood Count 5.07 M/mm3 (4.6-6.2); White Blood Count 5.6 K/mm3 (4.4-11.0)
[2023-03-31 16:24] LABS: AST(SGOT) 33 U/L (15-37); Alanine Aminotransfer ALT/SGPT 34 U/L (16-61); Albumin, Serum 3.8 g/dL (3.2-5.0); Alkaline Phosphatase 57 U/L (45-117); Anion Gap 9 (5-15); BUN 14 mg/dL (7-18); BUN/Creat Ratio 15.7 RATIO (10-20); Calcium,Total 9.3 mg/dL (8.5-10.1); Chloride 107 mmol/L (98-107); Creatinine, Serum 0.89 mg/dL (0.70-1.30); EST Glomerular Filtration Rate 90 mL/min (>60); Est Glom Filt Rate - Afr Amer 109 mL/min (>60); Globulin 3.7 g/dL (2.2-4.2); Glucose 78 mg/dL (74-106); Protein, Total 7.5 g/dL (6.4-8.2); Sodium Level 140 mmol/L (136-145)
== END | disposition home or self-care (01) ==
LOC: MTLAB 13:41
PROVIDERS: PCP Internal Medicine; Visit Provider Internal Medicine Rheumatology
DX: M06.4 Inflammatory polyarthropathy (principal); K50.90 Crohn's disease, unspecified, without complications; Z79.899 Other long term (current) drug therapy; H18.519 Endothelial corneal dystrophy, unspecified eye; G47.33 Obstructive sleep apnea (adult) (pediatric)
CPT/HCPCS: 36415; 80053; 85025

== ENCOUNTER → 2023-07-01 | Outpatient (CLI) | payer MEDICARE, OTHER, SELFPAY ==
[2023-07-01 10:10] LABS: Absolute Lymphocyte Count 0.81 X10^3/uL (0.83-4.51); Absolute Neutrophil Count 2.6 X10^3/uL (2.0-7.7); Basophil# 0.02 X10^3/uL; Basophil% 0.5 % (0-1); Eosinophil# 0.14 X10^3/uL; Eosinophils% 3.4 % (0-5); Hematocrit 50.1 % (40-54); Hemoglobin 16.6 g/dL (13.0-16.5); Lymphocyte # 0.81 X10^3/ul (0.83-4.51); Lymphocyte % 19.5 % (19-41); Mean Corp Hgb Conc 33.1 g/dL (32-36); Mean Corpuscular Hgb 30.9 pg (27.0-32.0); Mean Corpuscular Volume 93.1 fL (80-94); Mean Platelet Vol. 9.4 fl (6.2-12.0); Monocyte# 0.55 X10^3/uL; Monocyte% 13.3 % (0-10); NRBC Flagged by Analyzer 0 % (0-5); Neutrophil # 2.61 X10^3/uL (2.7-7.7); Neutrophil % 62.8 % (47-70); Platelet Count 188 K/mm3 (150-450); RBC Distribution Width CV 14.1 % (11.6-14.6); RBC Distribution Width SD 48.1 fl (35.1-43.9); Red Blood Count 5.38 M/mm3 (4.6-6.2); White Blood Count 4.2 K/mm3 (4.4-11.0)
[2023-07-01 11:04] LABS: ALB/GLOB Ratio 0.9 RATIO (0.9-2.4); AST(SGOT) 32 U/L (15-37); Alanine Aminotransfer ALT/SGPT 41 U/L (16-61); Albumin, Serum 3.6 g/dL (3.2-5.0); Alkaline Phosphatase 62 U/L (45-117); Anion Gap 3 (5-15); BUN 17 mg/dL (7-18); BUN/Creat Ratio 18.7 RATIO (10-20); Calcium,Total 9.3 mg/dL (8.5-10.1); Chloride 104 mmol/L (98-107); Creatinine, Serum 0.91 mg/dL (0.70-1.30); EST Glomerular Filtration Rate 88 mL/min (>60); Est Glom Filt Rate - Afr Amer 107 mL/min (>60); Glucose 105 mg/dL (74-106); Potassium 3.9 mmol/L (3.5-5.1); Protein, Total 7.6 g/dL (6.4-8.2); Sodium Level 139 mmol/L (136-145)
== END | disposition home or self-care (01) ==
LOC: MTLAB 09:04
PROVIDERS: PCP Internal Medicine; Referring Provider Internal Medicine Rheumatology; Visit Provider Internal Medicine Rheumatology
DX: M06.4 Inflammatory polyarthropathy (principal); K50.90 Crohn's disease, unspecified, without complications; Z79.899 Other long term (current) drug therapy; H18.513 Endothelial corneal dystrophy, bilateral; G47.33 Obstructive sleep apnea (adult) (pediatric)
CPT/HCPCS: 36415; 80053; 85025

== ENCOUNTER → 2023-09-23 | Outpatient (CLI) | payer MEDICARE, OTHER, SELFPAY ==
--- OUTSIDE RECORDS SUMMARY | 2023-09-23 10:18 | XMS RPT_ITS | CCD ---
Author Name Unknown Address [address] [place] [address] Organization [facility] Care Team Providers Care Lactation Consultant Name Role Phone Lopez Ortiz MD Primary Care Provider [phone] LOPEZ ORTIZ Primary Care Unavailable PROVIDER, UNKNOWN Referring Unavailable PROVIDER, UNKNOWN Referring Unavailable LOPEZ ORTIZ Primary Care Unavailable Angel WAHL, Lopez Méndez Primary Care Provider [phone] MELISSA VALENCIA Attending Unavailable RENETTA SPIVEY Referring Unavailable ANGEL, LOPEZ Méndez Primary Care Unavailable MELISSA VALENCIA Referring Unavailable ORTIZ, LOPEZ Méndez Primary Care Unavailable KEMI LEE Referring Unavailable ANGEL, LOPEZ Méndez Primary Care Unavailable KEMI LEE Attending Unavailable ANGEL, LOPEZ Méndez Primary Care Unavailable ANGEL, LOPEZ Méndez Primary Care Unavailable LAILA GRANT Referring Unavailable ORTIZ, LOPEZ Méndez Primary Care Unavailable JOHNNY BECKMAN Attending Unavailable JOHNNY BECKMAN Referring Unavailable ANGEL, LOPEZ Méndez Primary Care Unavailable JOHNNY BECKMAN Attending Unavailable KEMI LEE Referring Unavailable ANGEL, LOPEZ Méndez Primary Care Unavailable MELISSA VALENCIA Referring Unavailable ANGEL, LOPEZ Méndez Primary Care Unavailable Allergies Allergy Classification Reported Allergen(s) Allergy Type Date of Onset Reaction(s) Facility (3 sources) Penicillins; Translations: [PENICILLINS] Drug Allergy 02-01-2003 [facility] Work Phone: (18 sources) Penicillins Drug Allergy 02-01-2003 [facility] Work Phone: Medications Completed/Discontinued Medications Medication Drug Class(es) Dates Sig (Normalized) Sig (Original) calcium carbonate 1250 mg / cholecalciferol 0.01 mg oral tablet (19 sources) Vitamin D Start: 07-04-2020 take 1 tablet by mouth twice daily Calcium-Cholecalc iferol, D3, (CALCIUM 500 + D) 500 mg(1,250mg) -400 unit per tablet Take 1 tablet by mouth twice daily. 0 07/04/2020 Active Problems Active Problems Problem Classification Problem Date Documented Da te Episodic/Chronic Nutritional deficiencies (19 sources) Vitamin D deficiency; Translations: [Vitamin D deficiency, unspecified] Onset: 04-14-2017 04-14-2017 Chronic Other bone disease and musculoskeletal deformities (1 source) Osteopenia; Translations: [Other specified disorders of bone density and structure, unspecified site] Episodic Other connective tissue disease (1 source) Pain in left foot; Translations: [Pain in left foot] 06-16-2023 Episodic Other hematologic conditions (1 source) Erythrocytosis; Translations: [Secondary polycythemia] Episodic Regional enteritis and ulcerative colitis (20 sources) Crohn's disease of small AND large intestines; Translations: [Crohn's disease of both small and large intestine with unspecified complications] Onset: 07-25-2005 Chronic Residual codes; unclassified (1 source) History of two doses hepatitis B vaccine; Translations: [Personal history of other drug therapy] Episodic Residual codes; unclassified (1 source) Pain; Translations: [Pain, unspecified] 06-16-2023 Episodic Residual codes; unclassified (1 source) Pain, unspecified; Translations: [Pain] Onset: 06-16-2023 Episodic Rheumatoid arthritis and related disease (19 sources) Inflammatory polyarthropathy; Translations: [Inflammatory polyarthropathy] Onset: 02-02-2018 02-02-2018 Chronic Past or Other Problems Problem Classification Problem Date Documented Date Episodic/Chronic Noninfectious gastroenteritis (3 sources) Noninfective gastroenteritis and colitis, unspecified; Translations: [Inflammatory bowel disease] Onset: 3 Episodic Other aftercare (19 sources) Long-term current use of immunosuppressive drug; Translations: [Other intermediate teacher (current) drug therapy] Onset: 7 04-14-2017 Episodic Other hematologic conditions (1 source) Secondary polycythemia; Translations: [Polycythemia] Onset: 3 Episodic Other non-epithelial cancer of skin (19 sources) History of malignant neoplasm of skin; Translations: [Personal history of other malignant neoplasm of skin] Onset: 0 07-04-2020 Episodic Other skin disorders (19 sources) Actinic keratosis; Translations: [Actinic keratosis] Onset: 9 02-02-2018 Episodic Other skin disorders (19 sources) Seborrheic keratosis; Translations: [Other seborrheic keratosis] Onset: 9 09-04-2008 Episodic Residual codes; unclassified (1 source) Personal history of other drug therapy; Translations: [Has received second dose of hepatitis B vaccine] Onset: 2 Episodic Results Test Name Value Interpretation Reference Range Facil ity Vital Signs Date Time Vital Sign Value Performing Clinician Singh flores 06-16-2023 15:17-0400 Body temperature 96.91 [degF] Laila Grant APRN.WE[employer] DRILLER HELPER Work Phone: [facility] 06-16-2023 15:17-0400 Body weight 80.65 kg Laila Grant APRN.WELL DRILLER HELPER Work Phone: [facility] 06-16-2023 15:17-0400 Diastolic blood pressure 66 mm[Hg] Laila Grant APRN.WELL DRILLER HELPER Work Phone: [facility] 06-16-2023 15:17-0400 Heart rate 88 /min Laila Grant APRN.WELL DRILLER HELPER Work Phone: [facility] 06-16-2023 15:17-0400 Respiratory rate 20 /min Laila Grant APRN.WELL DRILLER HELPER Work Phone: [facility] 06-16-2023 15:17-0400 SaO2% (BldA) [Mass fraction] 98 % Laila Grant APRN.WELL DRILLER HELPER Work Phone: [facility] 06-16-2023 15:17-0400 Systolic blood pressure 108 mm[Hg] Laila Grant APRN.WELL DRILLER HELPER Work Phone: [facility] 09-16-2022 13:44-0500 Body height 176.5 cm Melissa Valencia MD Work Phone: [facility] 09-16-2022 13:44-0500 Body temperature 97.3 [degF] Melissa Valencia MD Work Phone: [facility] 09-16-2022 13:44-0500 Body weight 76.66 kg Melissa Valencia MD Work Phone: [facility] 09-16-2022 13:44-0500 Diastolic blood pressure 78 mm[Hg] Melissa Valencia MD Work Phone: [facility] 09-16-2022 13:44-0500 Heart rate 64 /min Melissa Valencia MD Work Phone: [facility] 09-16-2022 13:44-0500 Systolic blood pressure 130 mm[Hg] Melissa Valencia MD Work Phone: [facility] 07-19-2022 10:36-0500 Body height 175.3 cm Kemi Rosa EXPERIMENTAL PLASTICS FABRICATOR.WE[employer] D[employer]LLER HELPER Work Phone: [facility] 07-19-2022 10:36-0500 Body temperature 96.8 [degF] Kemi Rosa EXPERIMENTAL PLASTICS FABRICATOR.WE[employer] DRILLER HELPER Work Phone: [facility] 07-19-2022 10:36-0500 Body weight 75.75 kg Kemi Rosa EXPERIMENTAL PLASTICS FABRICATOR.WE[employer] DRILLER HELPER Work Phone: [facility] 07-19-2022 10:36-0500 Diastolic blood pressure 84 mm[Hg] Kemi Rosa EXPERIMENTAL PLASTICS FABRICATOR.WE[employer] DRILLER HELPER Work Phone: [facility] 07-19-2022 10:36-0500 Heart rate 66 /min Kemi Rosa EXPERIMENTAL PLASTICS FABRICATOR.WE[employer] DRILLER HELPER Work Phone: [facility] 07-19-2022 10:36-0500 SaO2% (BldA) [Mass fraction] 99 % Kemi Rosa EXPERIMENTAL PLASTICS FABRICATOR.WE[employer] DRILLER HELPER Work Phone: [facility] 07-19-2022 10:36-0500 Systolic blood pressure 128 mm[Hg] Kemi Rosa EXPERIMENTAL PLASTICS FABRICATOR.WE[employer] DRILLER HELPER Work Phone: [facility] 11-30-2021 08:50-0400 Body height 175.3 cm Mike Almeida EXPERIMENTAL PLASTICS FABRICATOR.WE[employer] DRILLER HELPER Work Phone: [facility] 11-30-2021 08:50-0400 Body temperature 98.1 [degF] Mike Almeida APRN.CNP Work Phone: [facility] 11-30-2021 08:50-0400 Body weight 81.65 kg Mike Almeida APRN.KEVAN Work Phone: [facility] 11-30-2021 08:50-0400 Diastolic blood pressure 79 mm[Hg] Mike Almeida APRN.KEVAN Work Phone: [facility] 11-30-2021 08:50-0400 Heart rate 62 /min Mike Almeida APRN.WELL DRILLER HELPER Work Phone: [facility] 11-30-2021 08:50-0400 Systolic blood pressure 131 mm[Hg] Mike Almeida APRN.WELL DRILLER HELPER Work Phone: [facility] Encounters Encounter Date Encounter Type Care Provider Facility Start: 06-23-2023 Telephone encounter Johnny Beckman MD Work Phone: [facility] Procedures Date Procedure Procedure Detail Performing Clinician Start: 11-19-2022 Lipid 1996 panel - S surinder or Plasma Lopez Ortiz MD Work Phone: Start: 11-26-2021 Adult depression scr eening assessment Mike Almeida APRN.WELL DRILLER HELPER Work Phone: Start: 07-12-2017 Colonoscopy Mike clay APRN.CNP Work Phone: Plan of Treatment Date Care Activity Detail Author Start: 02-09-2030 Urine microalbumin profile [facility] Start: 02-03-2028 Urine microalbumin profile DTAP,TDAP,TD (2 - Td or Tdap) [facility] Start: 11-20-2027 Lipid 1996 panel - Serum or Plasma Lipid Screening [facility] Start: 11-20-2027 Prostate Cancer Screening Discussion Prostate Cancer Screening Discussion [facility] Start: 09-17-2027 SIGMOIDOSCOPY SIGMOIDOSCOPY [facility] Start: 11-07-2026 LIPID SCREEN LIPID SCREEN [facility] Start: 06-30-2026 SIGMOIDOSCOPY SIGMOIDOSCOPY [facility] Start: 09-20-2025 LIPID SCREEN LIPID SCREEN [facility] Start: 08-26-2025 PROSTATE CANCER SCREENING DISCUSSION PROSTATE CANCER SCREENING DISCUSSION [facility] Start: 07-19-2025 DIABETES SCREEN DIABETES SCREEN [facility] Start: 07-19-2025 Diabetes Screening Diabetes Screening [facility] Start: 06-20-2025 PNEUMOVAX AGE 65 AND OVER WITH 5YR LOOKBACK (#1) PNEUMOVAX AGE 65 AND OVER WITH 5YR LOOKBACK (#1) [facility] Start: 06-26-2024 DIABETES SCREEN DIABETES SCREEN [facility] Start: 04-29-2023 Covid-19 Vaccine ( season) Covid-19 Vaccine () [facility] Start: 04-29-2023 Influenza vaccination Influenza Vaccine (#1) [facility] Start: 11-26-2022 Adult depression screening assessment DEPRESSION SCREENING [facility] Start: 09-18-2022 COLORECTAL CANCER SCREENING COLORECTAL CANCER SCREENING [facility] Start: 09-16-2022 End: 11-16-2022 JAK2 gene targeted mutation analysis in Blood or Tissue by Molecular genetics method [facility] Work Phone: Immunizations Immunization Date Immunization Notes Care Provider [facility] 07-19-2022 hepatitis B vaccine, adult dosage Kemi Rosa EXPERIMENTAL PLASTICS FABRICATOR.WE[employer] DRILLER HELPER Work Phone: [facility] 06-25-2022 influenza virus vacc ine, unspecified formulation Lopez Ortiz MD Work Phone: [facility] 11-30-2021 hepatitis B vaccine, adult dosage Kemi Rosa EXPERIMENTAL PLASTICS FABRICATOR.WE[employer] DRILLER HELPER Work Phone: [facility] Work Phone: 10-27-2021 hepatitis B vaccine, adult dosage Kemi Rosa EXPERIMENTAL PLASTICS FABRICATOR.WE[employer] DRILLER HELPER Work Phone: [facility] Work Phone: 10-27-2021 pneumococcal (PCV20) vaccine, 20 valent (PREVNAR 20) Kemi Rosa EXPERIMENTAL PLASTICS FABRICATOR.WE[employer] DRILLER HELPER Work Phone: [facility] Work Phone: 10-01-2021 influenza, injectabl e, quadrivalent, preservative free Kemi Rosa EXPERIMENTAL PLASTICS FABRICATOR.[facility] Work Phone: [facility] Work Phone: 11-04-2020 COVID-19 original vaccine, full dose, monovalent (MODERNA) Kemi Rosa EXPERIMENTAL PLASTICS FABRICATOR.[facility] Work Phone: [facility] Work Phone: 09-15-2020 zoster vaccine recombinant Kemi Rosa EXPERIMENTAL PLASTICS FABRICATOR.[facility] Work Phone: [facility] Work Phone: 06-20-2020 pneumococcal polysaccharide vaccine, 23 valent Mike Almeida EXPERIMENTAL PLASTICS FABRICATOR.[facility] Work Phone: [facility] Work Phone: 06-20-2020 zoster vaccine recombinant Mike Almeida EXPERIMENTAL PLASTICS FABRICATOR.[facility] Work Phone: [facility] Work Phone: 06-13-2020 influenza, injectabl e, quadrivalent, preservative free Kemi Rosa EXPERIMENTAL PLASTICS FABRICATOR.[facility] Work Phone: [facility] Work Phone: 02-10-2020 tetanus toxoid, redu niall diphtheria toxoid, and acellular pertussis vaccine, adsorbed Kemi Rosa EXPERIMENTAL PLASTICS FABRICATOR.[facility] Work Phone: [facility] Work Phone: 10-05-2019 hepatitis A vaccine, adult dosage Mike Almeida EXPERIMENTAL PLASTICS FABRICATOR.[facility] Work Phone: [facility] Work Phone: 06-03-2019 influenza, injectabl e, quadrivalent, preservative free Kemi Rosa EXPERIMENTAL PLASTICS FABRICATOR.[facility] Work Phone: [facility] Work Phone: 06-03-2019 tetanus toxoid, redu niall diphtheria toxoid, and acellular pertussis vaccine, adsorbed Kemi Rosa EXPERIMENTAL PLASTICS FABRICATOR.[facility] Work Phone: [facility] Work Phone: 07-16-2018 influenza, seasonal, injectable Mike Almeida EXPERIMENTAL PLASTICS FABRICATOR.[facility] Work Phone: [facility] 06-16-2018 influenza, injectabl e, quadrivalent, preservative free Kemi Rosa EXPERIMENTAL PLASTICS FABRICATOR.[facility] Work Phone: [facility] Work Phone: 02-02-2018 tetanus toxoid, redu niall diphtheria toxoid, and acellular pertussis vaccine, adsorbed Mike Almeida EXPERIMENTAL PLASTICS FABRICATOR.[facility] Work Phone: [facility] Work Phone: 06-24-2017 influenza, injectabl e, quadrivalent, preservative free Kemi Rosa EXPERIMENTAL PLASTICS FABRICATOR.[facility] Work Phone: [facility] Work Phone: 03-23-2017 hepatitis A vaccine, adult dosage Mike Almeida EXPERIMENTAL PLASTICS FABRICATOR.[facility] Work Phone: [facility] Work Phone: 05-21-2016 influenza, injectabl e, quadrivalent, preservative free Kemi Rosa EXPERIMENTAL PLASTICS FABRICATOR.[facility] Work Phone: [facility] Work Phone: 07-10-2009 novel influenza-H1N1 -09, preservative-free, injectable Mike Almeida EXPERIMENTAL PLASTICS FABRICATOR.[facility] Work Phone: [facility] Work Phone: 07-14-2005 influenza virus vacc ine, unspecified formulation Mike Almeida EXPERIMENTAL PLASTICS FABRICATOR.[facility] Work Phone: [facility] 06-12-2004 influenza virus vacc ine, unspecified formulation Mike Almeida EXPERIMENTAL PLASTICS FABRICATOR.[facility] Work Phone: [facility] Payers Date Payer Category Payer Private Health Insurance [facility] AARP SUPPLEMENT [id number] 2022-Present [phone] [address] [place] [address] Indemnity [id number] 2022 Unknown [id number] 2020 Medicare MEDICARE MEDICAR E A AND B [id number] 2020-Present [phone] [place] [address] Medicare [id number] 2020 Medicare [id number] 2019 Unknown [facility] CE PLAN [place] PPO [employer] GENERIC [id number] 2019-Present [phone] [address] [place] [address] PPO [id number] Social History Date Type Detail Facility Start: 07-19-2022 Tobacco smoking stat [facility] Never smoked tobacco [facility] Start: 10-19-2021 End: 09-16-2022 Alcohol intake Current drinker of alcohol (finding) [facility] Start: 10-19-2021 End: 01-17-2023 Alcohol intake [facility] Start: 07-04-2020 History SDOH Alcohol Frequency 2 [facility] Start: 07-04-2020 History SDOH Alcohol Std Drinks 1 [facility] Start: 07-04-2020 History SDOH Alcohol Comment 1 beer on rare occasions. [facility] Start: 07-04-2020 History SDOH Social Connections Phone 3 [facility] Start: 07-04-2020 Education 12 [facility] Start: 1955 Sex Assigned At Male C [facility] Start: 11-20-2021 End: 07-19-2022 Exposure to SARS-CoV-2 (event) Not sure [facility] Start: 07-19-2022 Tobacco use and exposure Smoke less tobacco non-user [facility] Start: 09-17-2022 End: 06-16-2023 Alcohol intake Ex-drinker (finding) [facility] Start: 07-04-2020 End: 01-17-2023 Social connection and isolation panel [facility] Active Member of [facility] bs or Organizations Not on file [facility] Are you now , , , , never or living with a partner? [facility] How often to you hav e a drink containing alcohol? Monthly or less [facility] Work Phone: How many standard dr inks containing alcohol do you have on a typical day? 1 or 2 [facility] Work Phone: How often do you hav e 6 or more drinks on 1 occasion? Never [facility] Work Phone: Do you feel stress - tense, restless, nervous, or anxious, or unable to sleep at night because your mind is troubled all the time - these days [OSQ] Only a little [facility] (I/We) worried wheth er (my/our) food would run out before (I/we) got money to buy more. Never true [facility] In the past 12 month s, was there a time when you were not able to pay the mortgage or rent on time? No [facility] Start: 11-26-2021 Gender identity Identifies as male gender (finding) [facility] Medical Equipment Procedure Code Equipment Code Equipment Origin al Text Equipment Identifier Dates Use for methotre xate injections Start: 10-19-2021 Clinical Notes 04-14-2017 to 06-23-2023 Telephone Encounter - Xenia Araya - 06/23/2023 4:46 PM EDTTelephone Encounter - Marlin Wise MA - 06/16/2023 6:56 PM CHEYENNETLaila Grant APRN.CNP - 06/16/2023 3:36 PM EDT Note Date & Type Note Facility 06-23-2023 Miscellaneous Notes Incoming fax received from [facility] requesting most recent clinical notes. Faxed 01/17/2023 successfully to [phone]. Xenia Araya documented in this encounter [facility] 06-16-2023 Miscellaneous Notes Pt was notified of the results. Pt verbalized understanding. Marlin Wise MA Patient x-ray with no acute findings. Patient send rest ice elevate give it a week or so and follow-up with primary care if symptoms persist. documented in this encounter [facility] 06-16-2023 Note HNO ID: [id number] Author: Vera Keller RT(R) Service: ? Author Type: Technologist Type: Progress Notes Filed: 06/16/2023 4:42 PM Note Text: Radiology Service Progress Note PATIENT NAME: Cory Ritter DATE OF SERVICE: June 16, 2023 TIME: 4:42 PM PATIENT IDENTITY VERIFICATION COMPLETED USING TWO (2) IDENTIFIERS: Name and Date of confirmed by patient verbally. FALL SCREENING: Has the patient had 2 falls in the last year or 1 fall with injury or currently using an Ambulatory Assistive Device (Walker, Cane, Wheelchair, Crutches, etc.)? No PATIENT GENDER DATA: Male PATIENT RELEVANT IMPLANT DATA REVIEWED: Not Applicable RADIOLOGY DEPARTMENT: General X-ray: Exam(s) Completed: Lower Extremity X-Ray(s): Foot, Left PERIPHERAL IV DATA: Not applicable SIGNED BY: RT Kristi(R) June 16, 2023 4:42 PM [facility] 06-16-2023 Note HNO ID: [id number] Author: Laila Grant APRN.KEVAN Service: ? Author Type: Nurse Practitioner Type: Progress Notes Filed: 06/16/2023 5:24 PM Note Text: This note was created using LocalGuidingriter. Subjective Cory Ritter is a 67 year old male. Patient presents with one day of left foot pain after twisting his foot. Pain is 7/10, sharp, worse with movement. He denies numbness or tingling. He has not taken any medication for symptoms. The history is provided by the patient. Review of Systems Constitutional: Negative for chills and fever. Respiratory: Negative for shortness of breath. Cardiovascular: Negative for chest pain. Musculoskeletal: Positive for arthralgias and joint swelling. Neurological: Negative for weakness and numbness. All other systems reviewed and are negative. Objective BP 108/66 Pulse 88 Temp 36.1 ?C (96.9 ?F) Resp 20 Wt 80.6 kg (177 lb 12.8 oz) SpO2 98% BMI 26.26 kg/m? 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 Periodic surveillance ALLERGIES Penicillins MEDICATIONS ustekinumab (STELARA) 90 mg/mL injection INJECT 1 ML UNDER THE SKIN EVERY 4 WEEKS latanoprost (XALATAN) 0.005 % ophthalmic solution once daily. Syringe with Needle, Disp, (BD TUBERCULIN SYRINGE) 1 mL 25 gauge x 5/8 Use for methotrexate injections methotrexate sodium 25 mg/mL soln Inject 0.6 mL subcutaneously one time a week. fluorometholone (FML LIQUID FILM) 0.1 % ophthalmic suspension Use 1 Drop in the left eye once daily. Cholecalciferol, Vitamin D3, 50 mcg (2,000 unit) cap Take 1 capsule by mouth once daily. Calcium-Cholecalciferol, D3, (CALCIUM 500 + D) 500 mg(1,250mg) -400 unit per tablet Take 1 tablet by mouth twice daily. folic acid 1 mg tablet Take 1 tablet by mouth twice daily. FAMILY HISTORY Problem Relation Age of Onset Breast Cancer Mother Diabetes Mother mild diabetes Coronary Artery Disease Father angina, no procedures/no NC as of 04/05 GI Sister Crohn's GI Brother Crohn's Colon Cancer Other none Prostate Cancer Other none Social History Tobacco Use Smoking status: Never Smokeless tobacco: Never Vaping Use Vaping Use: Never used Substance Use Topics Alcohol use: Not Currently Alcohol/week: 2.0 standard drinks of alcohol Types: 2 Cans of Beer (12oz) per week Comment: 1 beer on rare occasions. Drug use: No Physical Exam Vitals reviewed. Constitutional: General: He is not in acute distress. Appearance: Normal appearance. He is normal weight. He is not ill-appearing or toxic-appearing. Cardiovascular: Rate and Rhythm: Normal rate and regular rhythm. Pulmonary: Effort: Pulmonary effort is normal. Breath sounds: Normal breath sounds. Musculoskeletal: General: Swelling and tenderness present. No deformity. Normal range of motion. Left foot: Normal range of motion and normal capillary refill. Swelling, tenderness and bony tenderness present. No crepitus. Normal pulse. Legs: Skin: General: Skin is warm and dry. Capillary Refill: Capillary refill takes less than 2 seconds. Neurological: General: No focal deficit present. Mental Status: He is alert and oriented to person, place, and time. Mental status is at baseline. Psychiatric: Mood and Affect: Mood normal. Behavior: Behavior normal. Thought Content: Thought content normal. Judgment: Judgment normal. Assessment and Plan ASSESSMENT/PLAN: 1. Foot pain, left - ICD9: 729.5, ICD10: M79.672 (primary diagnosis) - XR left foot negative IMPRESSION: No definite acute abnormalities seen in the left foot. - Rest, ice, elevate - Follow up as needed 2. Pain - ICD9: 780.96, ICD10: R52 - See above - XR FOOT GENERAL 3V AP/LAT/OBL LEFT E Emelyn [employer] CLAIMS ADJUSTER Student Supervising provider was present and guided the care of the patient for the entire session on this date. All documentation was reviewed and agreed upon. Laila Grant APRN.[facility] 06-16-2023 History of Presen t illness Narrative Images from the original note were not included. This note was created using LocalGuidingriter. Subjective Cory Ritter is a 67 year old male. Patient presents with one day of left foot pain after twisting his foot. Pain is 7/10, sharp, worse with movement. He denies numbness or tingling. He has not taken any medication for symptoms. The history is provided by the patient. Review of Systems Constitutional: Negative for chills and fever. Respiratory: Negative for shortness of breath. Cardiovascular: Negative for chest pain. Musculoskeletal: Positive for arthralgias and joint swelling. Neurological: Negative for weakness and numbness. All other systems reviewed and are negative. 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 Periodic surveillance ALLERGIES Penicillins MEDICATIONS ustekinumab (STELARA) 90 mg/mL injection INJECT 1 ML UNDER THE SKIN EVERY 4 WEEKS latanoprost (XALATAN) 0.005 % ophthalmic solution once daily. Syringe with Needle, Disp, (BD TUBERCULIN SYRINGE) 1 mL 25 gauge x 5/8 Use for methotrexate injections methotrexate sodium 25 mg/mL soln Inject 0.6 mL subcutaneously one time a week. fluorometholone (FML LIQUID FILM) 0.1 % ophthalmic suspension Use 1 Drop in the left eye once daily. Cholecalciferol, Vitamin D3, 50 mcg (2,000 unit) cap Take 1 capsule by mouth once daily. Calcium-Cholecalciferol, D3, (CALCIUM 500 + D) 500 mg(1,250mg) -400 unit per tablet Take 1 tablet by mouth twice daily. folic acid 1 mg tablet Take 1 tablet by mouth twice daily. FAMILY HISTORY Problem Relation Age of Onset Breast Cancer Mother Diabetes Mother mild diabetes Coronary Artery Disease Father angina, no procedures/no NC as of 04/05 GI Sister Crohn's GI Brother Crohn's Colon Cancer Other none Prostate Cancer Other none Social History Tobacco Use Smoking status: Never Smokeless tobacco: Never Vaping Use Vaping Use: Never used Substance Use Topics Alcohol use: Not Currently Alcohol/week: 2.0 standard drinks of alcohol Types: 2 Cans of Beer (12oz) per week Comment: 1 beer on rare occasions. Drug use: No Physical Exam Vitals reviewed. Constitutional: General: He is not in acute distress. Appearance: Normal appearance. He is normal weight. He is not ill-appearing or toxic-appearing. Cardiovascular: Rate and Rhythm: Normal rate and regular rhythm. Pulmonary: Effort: Pulmonary effort is normal. Breath sounds: Normal breath sounds. Musculoskeletal: General: Swelling and tenderness present. No deformity. Normal range of motion. Left foot: Normal range of motion and normal capillary refill. Swelling, tenderness and bony tenderness present. No crepitus. Normal pulse. Legs: Skin: General: Skin is warm and dry. Capillary Refill: Capillary refill takes less than 2 seconds. Neurological: General: No focal deficit present. Mental Status: He is alert and oriented to person, place, and time. Mental status is at baseline. Psychiatric: Mood and Affect: Mood normal. Behavior: Behavior normal. Thought Content: Thought content normal. Judgment: Judgment normal. Assessment and Plan ASSESSMENT/PLAN: 1. Foot pain, left - ICD9: 729.5, ICD10: M79.672 (primary diagnosis) - XR left foot negative IMPRESSION: No definite acute abnormalities seen in the left foot. - Rest, ice, elevate - Follow up as needed 2. Pain - ICD9: 780.96, ICD10: R52 - See above - XR FOOT GENERAL 3V AP/LAT/OBL LEFT E Emelyn [employer] CLAIMS ADJUSTER Student Supervising provider was present and guided the care of the patient for the entire session on this date. All documentation was reviewed and agreed upon. Laila Grant APRN.WE[employer]RILLER HELPER documented in this encounter [facility] 05-24-2023 Miscellaneous Notes Pt reports he started having cold like symptoms ~7 days ago. Reports a scratchy throat, occasional cough, sweaty, chills & fatigue. Tested + for covid yesterday. Pt was notified he was to quarantine X5 days then mask for another 5 days if he will be in public. He will be seen if he develops any worsening symptoms or problematic sx. Imani Marie LPN documented in this encounter [facility] 01-17-2023 Note HNO ID: [id number] Author: Kaushal Caceres, Research Coordinator Service: ? Author Type: Research Type: Progress Notes Filed: 01/17/2023 12:05 PM Note Text: STUDY TITLE: EMILEE-EIM: Cohort for Healing Arthritis, Skin, and Eye Extra-Intesetinal Manifestations IRB NO.: [id number] MACHINE STACKER: Ankit Contreras MD STUDY COORDINATORS: Kaushal Caceres, MS Lorne Robert MS Pager: [phone] Prior to consent discussion, Cory Ritter's medical record was reviewed for pre-screening activities, including participation in other research studies. Patient's clinician, Dr. Beckman, confirmed that the patient could be eligible for the study. Inclusion Criteria Exclusion Criteria Age > 18 - Yes IBD Diagnosed and followed by a advertising statistical clerk. - Yes Meets diagnosed criteria for peripheral arthritis, per IBD specialist or rhematologist - Yes Joint pain + swollen / tender joints on exam OR morning stiffness + joint pain + swollen / tender joints on exam OR swollen, tender joints on exam with exclusion of other etiologies Inability or unwillingness to provide written informed consent or any other condition which may hinder competence / compliance with study in the opinion of any study investigator narcotics - No The study was verbally discussed with the patient, including the risks, benefits and alternatives. Study requirements AND follow-up procedures were reviewed, and the importance of follow-up compliance was stressed. Patient expressed full understanding of the research study AND all terms of the informed consent document. All questions were addressed AND answered. Patient signed the informed consent document on 01/17/2023, prior to beginning the research study protocol. Physician EIM Evaluation - Reviewed AND confirmed with Dr. Fontenot Active luminal IBD (physician global impression): No Patient report of joint pain: Yes Patient report of morning stiffness: Yes # of swollen or tender joints (numeral): 8 Location of tender or swollen joints (select all that apply): L Hand, R Hand , L knee, and R knee Type of IBD Therapy before / at visit: MTX and Ustekinumab Type of IBD Therapy after visit: Ustekinumab Non-IBD related peripheral arthritis therapy: Other None Emailed questionnaires will be sent to patient email [facility] 01-17-2023 Note Education (DDQ) CORY RITTER ([id number]) 1955 Date Time Provider Department 01/17/23 KAUSHAL CACERES DDQ Reason for Visit: Informed Consent [920] Cmt: IRB # [id number] During your visit today, we recorded the following information about you: Allergies As of Date: 01/17/2023 Noted Allergy Reaction PENICILLINS 02/01/2003 7 - Swelling Date Reviewed: 01/17/2023 Reviewed by: Tyshawn Osborne LPN - Fully Assessed Prescriptions as of 01/17/2023 - latanoprost (XALATAN) 0.005 % ophthalmic solution once daily. - iv contrast (will be provided with radiology test) CT Enterography W Inject, intravenously, once for 1 dose.No IV access, insert saline lock prior to the beginning of sedation, infusion, injection of imaging exam. Discontinue saline lock post exam. If Pt. has a central line or IVAD, may access for administration according to line specific nursing protocol. Once exam is complete flush line and de-access according to line specific nursing protocol in the CT contrast administration guidelines link. - enteric contrast (will be provided with radiology test) For CT ENTEROGRAPHY W IVCON order Administer, As Directed One Time Only, via Oral, Rectal, both Oral and Rectal, Enteric Tube, Stoma or Indwelling Catheter,? Enteric Contrast as designated per enteric contrast guidelines. - polyethylene glycol 3350 17 gram/dose powder Use as directed for Miralax / Gatorade Bowel Prep Kit - Gatorade Sports Drink Use as directed for Miralax / Gatorade Bowel Prep Kit - Bisacodyl (DULCOLAX) 5 mg tab Use as directed for Miralax / Gatorade Bowel Prep Kit - ustekinumab (STELARA) 90 mg/mL injection INJECT 1 ML UNDER THE SKIN EVERY 8 WEEKS - Syringe with Needle, Disp, (BD TUBERCULIN SYRINGE) 1 mL 25 gauge x 5/8 Use for methotrexate injections - methotrexate sodium 25 mg/mL soln Inject 0.6 mL subcutaneously one time a week. - fluorometholone (FML LIQUID FILM) 0.1 % ophthalmic suspension Use 1 Drop in the left eye once daily. - Cholecalciferol, Vitamin D3, 50 mcg (2,000 unit) cap Take 1 capsule by mouth once daily. - Calcium-Cholecalciferol, D3, (CALCIUM 500 + D) 500 mg(1,250mg) -400 unit per tablet Take 1 tablet by mouth twice daily. - folic acid 1 mg tablet Take 1 tablet by mouth twice daily. Encounter Status:Closed by KAUSHAL CACERES on 01/17/23 [facility] 01-17-2023 Note HNO ID: [id number] Author: Johnny Beckman MD Service: ? Author Type: Physician Type: Progress Notes Filed: 01/17/2023 12:42 PM Note Text: Follow Up Visit/ IBD Review of IBD history (copied and updated from my prior notes): Crohn's since early - ileal and colonic. S/P STC with MARIO and DLI and then stoma closure in . 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 Last flex sig in 08/2022 showed no active inflammation but focal stricture in luisana-TI. Review of prior meds: - Azathioprine- [id number]; did well- stopped due to concern for lymphoma risk - Humira- [phone]; SILVINO and Ab development - Stelara- 2018 to present - Methotrexate- since 2019 for enteropathic arthritis; oral and then switch to SQ in 06/2021 BP 151/74 (BP Site: Left Arm, BP Position: Sitting) Pulse 65 Temp 36.4 ?C (97.5 ?F) (Temporal) Ht 175.3 cm (5' 9 ) Wt 78.7 kg (173 lb 9.6 oz) BMI 25.64 kg/m? Medications: Current Outpatient Medications Medication Sig latanoprost (XALATAN) 0.005 % ophthalmic solution once daily. ustekinumab (STELARA) 90 mg/mL injection INJECT 1 ML UNDER THE SKIN EVERY 8 WEEKS Syringe with Needle, Disp, (BD TUBERCULIN SYRINGE) 1 mL 25 gauge x 5/8 Use for methotrexate injections methotrexate sodium 25 mg/mL soln Inject 0.6 mL subcutaneously one time a week. fluorometholone (FML LIQUID FILM) 0.1 % ophthalmic suspension Use 1 Drop in the left eye once daily. Cholecalciferol, Vitamin D3, 50 mcg (2,000 unit) cap Take 1 capsule by mouth once daily. Calcium-Cholecalciferol, D3, (CALCIUM 500 + D) 500 mg(1,250mg) -400 unit per tablet Take 1 tablet by mouth twice daily. folic acid 1 mg tablet Take 1 tablet by mouth twice daily. No current facility-administered medications for this visit. Subjective: 67 year old male with Crohn's disease here for follow-up. Last seen 07/20 by Kemi Lee. Changes and test results since last visit: - started CPAP a few months ago - continues on stelara every 8 weeks, no side effects, no wearing off prior to next dose - 09/20 flex sig: poor prep, anal stricture, non-patent end-to-sied ileorectal anastomosis, recommended CTE and repeat flex sig w oral prep and sedation for dilation - reports schedulers were not able to schedule CTe after scope and to call back in a week, in 1 week they said to call back in a couple weeks and he tried this multiple times for weeks but was never able to schedule Current symptoms are: 2 bowel movements per day which are soft. No rectal urgency. No rectal bleeding. No abdominal pain. Appetite is excellent. Weight is BP 151/74 (BP Site: Left Arm, BP Position: Sitting) Pulse 65 Temp 36.4 ?C (97.5 ?F) (Temporal) Ht 175.3 cm (5' 9 ) Wt 78.7 kg (173 lb 9.6 oz) BMI 25.64 kg/m? , which is stable. No eye, skin IBD manifestations. +joint pain improved w MTX but still present Physician EIM Evaluation - Reviewed AND confirmed with Yana Fontenot Active luminal IBD (physician global impression): No Patient report of joint pain: Yes Patient report of morning stiffness: Yes # of swollen or tender joints (numeral): 8 Location of tender or swollen joints (select all that apply): L Hand and R Hand , b/l knees Type of IBD Therapy before / at visit: Ustekinumab, MTX for joints Type of IBD Therapy after visit: Ustekinumab Non-IBD related peripheral arthritis therapy: none Objective: Physical Examination General Appearance: alert, oriented x 3, pleasant and in no acute distress Heart:regular rate and rhythm, no murmurs or gallops Abdomen: Not distended. Normal bowel sounds. Soft and non-tender. No masses or organomegaly. Skin: scattered actinic keratoses Joints: +joint tenderness b/l hands Review of test results: Notable Labs: 12/29: WBC 6.1 Hgb 16.2 Platelets 188 AST 37 ALT 28 Alkphos 56 Tbili 0.6 Cr 0.99 ASSESSMENT (as copied and updated from my 09/2021 note and reflects medical decision making today): 67 year old male with Crohn's since early - ileal and colonic. S/P STC with MARIO and DLI and then stoma closure in . He has been on Stelara since 2019 and SC MTX 12.5 since 2020 (for enteropathic arthritis). Last flex sig 09/20 Health Maintenance: - Skin: has had skin CA- he pursues annual mole checks - Bones: last DEXA scan in 10/2021 showed osteopenia. Reminded to follow-up with rheumatology for this and re-printed this. Takes vit D (2,000 IU)- normal vit D level 06/2021 AND 11/2021 - Vaccines: he gets annual flu shot and had Tdap (2017), Pneumovax (2019), PCV-20 (2021), Shingrix (2019), HAV (2016 AND 2019; +Ab), Hep B (2021 x 3) and COVID + boosterx2 (2020, planning for repeat booster before he travels [place] - Deferred IBD RD and IBD Psych services at this time PLAN - continue uste q8 weeks + MTX for enteropathic arthritis - devyn (more content not included)... [facility] 11-10-2022 Miscellaneous Notes Received plan of treatment from [facility] regarding patient Stelara injection. Signed and faxed successfully to [phone]. Will be sent for scanning. Francine Mclaughlin RN documented in this encounter [facility] 10-11-2022 Miscellaneous Notes Called Kemi provided verbal orders for self teaching and self injection of Stelara. Francine Mclaughlin RN FRANCINE- please call her back and relay that I give a verbal order for Stelara injection teaching Johnny Beckman MD Kemi with [facility] called requesting a verbal order for nurse to go to patient home to teach how to administer the Stelara. Avelina Sepulveda Ma documented in this encounter [facility] 09-21-2022 Miscellaneous Notes Agree. Thank you. Cory Troncoso DO Dr. Troncoso reviewed and agreed with plan. Call to patient and aware of lab results and follow up per Dr. Valencia instructions below. Patient states understanding and denies further questions. Last OV note and labs faxed to Dr. Gonzalez's office. Patient aware. Karrie Martinez RN Dr. Valencia new patient on 09/16/22, referred by Dr. Dang for polycythemia. Dr. Valencia ordered erythropoietin level and JAK2 V617F mutation to rule out polycythemia rubra vera Erythropoietin level 10.1 JAK2 V617F mutation negative Per Dr. Valencia's note on 09/16/22, patient to follow-up with PCP and Dr. Dang if all his tests are normal. Please review and confirm I can call patient that results are normal and to follow up as above. I will also fax note and lab results to Dr. Dang. Karrie Martinez RN documented in this encounter [facility] 09-20-2022 Miscellaneous Notes Patient records have been faxed successfully to [facility] Francine Mclaughlin RN documented in this encounter [facility] 09-16-2022 Note HNO ID: [id number] Author: RT Vito(R) Service: Nuclear Medicine Author Type: Technologist Type: Progress Notes Filed: 09/16/2022 3:01 PM Note Text: Radiology Service Progress Note PATIENT NAME: Cory Ritter DATE OF SERVICE: September 16, 2022 TIME: 2:40 PM PATIENT IDENTITY VERIFICATION COMPLETED USING TWO (2) IDENTIFIERS: Name and Date of confirmed by patient verbally. FALL SCREENING: Has the patient had 2 falls in the last year or 1 fall with injury or currently using an Ambulatory Assistive Device (Walker, Cane, Wheelchair, Crutches, etc.)? No PATIENT GENDER DATA: Male PATIENT RELEVANT IMPLANT DATA REVIEWED: Not Applicable RADIOLOGY DEPARTMENT: General X-ray: Exam(s) Completed: Chest X-Ray PERIPHERAL IV DATA: Not applicable SIGNED BY: RT Vito(R) September 16, 2022 2:40 PM [facility] 09-16-2022 History and physical note Hematology and Medical Oncology PATIENT NAME: Cory Ritter. CLINIC NO: [id number]. ATTENDING PHYSICIAN: Melissa Valencia MD. DATE OF SERVICE:09/16/2022. DIAGNOSIS: Polycythemia Consultation requested by Dr. Gonzalez for an opinion regarding polycythemia. My final recommendations will be communicated back to the requesting physician by way of shared Medical record or letter to requesting physician via US mail. PERFORMANCE STATUS:100% HPI: This is a 66-year-old gentleman with no history of heart disease or chronic lung disease presenting with polycythemia. Past medical history significant for Crohn's disease and arthritis. He is currently on methotrexate and STELARA injection for treatment. He has noticed increased fatigue along with polycythemia recently and he was referred to Dr. Dang for sleep study. He was diagnosed with mild obstructive sleep apnea, but he has not started CPAP treatment. He denies headaches, visual changes or hyperviscosity symptoms. He has no fever, chills, night sweat, early satiety or pruritus. He has no history of DVT or pulmonary embolism. His weight and appetite is normal. He has no history of tobacco use and no occupational exposure. MEDICATIONS: Current Outpatient Medications Medication Sig ustekinumab (STELARA) 90 mg/mL injection INJECT 1 ML UNDER THE SKIN EVERY 8 WEEKS Syringe with Needle, Disp, (BD TUBERCULIN SYRINGE) 1 mL 25 gauge x 5/8 Use for methotrexate injections methotrexate sodium 25 mg/mL soln Inject 0.6 mL subcutaneously one time a week. fluorometholone (FML LIQUID FILM) 0.1 % ophthalmic suspension Use 1 Drop in the left eye once daily. Cholecalciferol, Vitamin D3, 50 mcg (2,000 unit) cap Take 1 capsule by mouth once daily. Calcium-Cholecalciferol, D3, (CALCIUM 500 + D) 500 mg(1,250mg) -400 unit per tablet Take 1 tablet by mouth twice daily. folic acid 1 mg tablet Take 1 tablet by mouth twice daily. No current facility-administered medications for this visit. . ALLERGIES: ALLERGIES Allergen Reactions Penicillins Swelling . 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 PAST SURGICAL HISTORY: PAST SURGICAL HISTORY Procedure Laterality Date ADENOIDECTOMY HX 1957 COLECTOMY PARTIAL W ANASTOM 05/28/1994 ileostomy PAST SURGICAL HISTORY OF 11/2015 cornea transplant and cataract left eye PAST SURGICAL HISTORY OF 02/2016 cornea transplant and cataract right eye 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 Periodic surveillance . FAMILY HISTORY: FAMILY HISTORY Problem Relation Age of Onset Breast Cancer Mother Diabetes Mother mild diabetes Coronary Artery Disease Father angina, no procedures/no NC as of 04/05 GI Sister Crohn's GI Brother Crohn's Colon Cancer Other none Prostate Cancer Other none . SOCIAL HISTORY: Social History Tobacco Use Smoking status: Never Smokeless tobacco: Never Vaping Use Vaping Use: Never used Substance Use Topics Alcohol use: Yes Alcohol/week: 2.0 standard drinks Types: 2 Cans of Beer (12oz) per week Comment: 1 beer on rare occasions. Drug use: No . REVIEW OF SYSTEMS: CONSTITUTIONAL: No fevers, chills, nightsweats, unintended weight loss HEENT: Denies frequent or severe heaches, nasal congestion/sinus symptoms, problematic allergy problems. EYES: No diplopia or blurry vision. CARDIOVASCULAR: No chest pain, dyspnea, palpitations, orthopnea, PND, ankle edema. PULM: No dyspnea, unexplained cough. GI: No dysphagia/odynophagia, problematic reflux, constipation, diarrhea, changes in stool habits, hematochezia, melena. : No new urinary complaints, including dysuria, gross hematuria or pyuria. NEURO: No new balance problems, peripheral weakness/paresthesias or numbness of concern. MUSC-SKEL: No new joint pain, swelling, or erythema. PSY: No concerns regarding depression, anxiety or panic. INTEGUMENTARY: No new skin changes (rash, new or changing mole, new growth) PHYSICAL EXAMINATION: Well-nourished well-developed 66-year-old gentleman in no acute distress BP 130/78 Pulse 64 Temp 97.3 Ht 5' 9.5 (1.77m) Wt 169 lb (76.7kg) BMI 24.61 kg/(m^2). Oxygen saturation 97% on room air HEENT: Head is normocephalic, atraumatic. Sclerae white, conjunctivae pink. PEERL. EOMs are intact. Oropharynx is benign. LYMPHATICS: There is no palpable adenopathy in the neck, supraclavicular region, axillae, or groin. LUNGS: Lungs are clear to percussion and auscultation. HEART: Heart is normal without murmurs, gallops, or rubs. ABDOMEN: Soft and nontender without organomegaly. No masses can be palpated. EXTREMITIES: Are without edema. NEUROLOGIC: Exam is physiologic LABORATORY DATA: Component Latest Ref Rng & Units 09/16/2022 WBC 3.70 - 11.00 k/uL 7.63 RBC 4.20 - 6.00 m/uL 5.69 Hemoglobin 13.0 - 17.0 g/dL 17.6 (H) Hematocrit 39.0 - 51.0 % 52.2 (H) MCV 80.0 - 100.0 fL 91.7 MCH 26.0 - 34.0 pg 30.9 MCHC 30.5 - 36.0 g/dL 33.7 RDW-CV 11.5 - 15.0 % 13.7 Platelet Count 150 - 400 k/uL 202 MPV 9.0 - 12.7 fL 9.2 Neut% % 82.4 Abs Neut (ANC) 1.45 - 7.50 k/uL 6.29 Lymph% % 10.5 Abs Lymph 1.00 - 4.00 k/uL 0.80 (L) Kemper% % 5.9 Abs Kemper <0.87 k/uL 0.45 Eosin% % 0.5 Abs Eosin <0.46 k/uL 0.04 Baso% % 0.4 Abs Baso <0.11 k/uL 0.03 Immature Gran % % 0.3 IMMATURE GRANS (ABS) <0.10 k/uL <0.03 NRBC /100 WBC 0.0 Absolute nRBC <0.01 k/uL <0.01 DTYPE Auto Component Latest Ref Rng & Units 07/19/2022 Protein, Total 6.3 - 8.0 g/dL 7.9 Albumin 3.9 - 4.9 g/dL 4.4 Calcium 8.5 - 10.2 mg/dL 10.0 Bilirubin, Total 0.2 - 1.3 mg/dL 0.5 Alkaline Phosphatase 38 - 113 U/L 71 AST 14 - 40 U/L 23 ALT 10 - 54 U/L 16 Glucose 74 - 99 mg/dL 79 BUN 9 - 24 mg/dL 16 Creatinine 0.73 - 1.22 mg/dL 0.81 Sodium 136 - 144 mmol/L 139 Potassium 3.7 - 5.1 mmol/L 4.0 Chloride 97 - 105 mmol/L 102 CO2 22 - 30 mmol/L 23 Anion Gap 9 - 18 mmol/L 14 eGFR >=60 mL/min/1.73m 97 CXR:COMPARISON: 02/02/2018 Lungs and pleura: No consolidation. No lung mass. No pleural effusion. No pneumothorax. Cardiomediastinal silhouette: Normal cardiomediastinal silhouette. Bones and soft tissues: Unremarkable. IMPRESSION: No developing abnormality or acute process ASSESSMENT: 66-year-old gentleman with polycythemia. He has no history of heart or chronic lung disease, no history of tobacco use. PLAN: -Check erythropoietin level and JAK2 [id number] mutation to rule out polycythemia rubra vera -Check chest x-ray today to exclude chronic lung disease -Obstructive sleep apnea and volume contraction from frequent caffeine use may contribute to secondary polycythemia. -Follow-up with PCP and Dr. Dang if all his tests are normal. I spent 45 minutes in the visit, with more than 50% of the total [id number] time of the visit in counseling / coordination of care. The patient was allowed enough time to ask questions. All questions were answered to his satisfaction. Patient verbalized understanding of polycythemia and therapeutic phlebotomy and aspirin is only indicated for treatment of polycythemia rubra vera. Melissa Valencia MD. ELECTRONICALLY SIGNED Cc: Lopez Damian MD documented in this encounter [facility] 09-16-2022 Nurse Note New patient, discuss recent lab results. DX: Polycythemia Aminah Chin LPN documented in this encounter [facility] 09-13-2022 Miscellaneous Notes Spoke with patient and scheduled. Анна Pimentel Summary: NEW PT Received referral and placed in nurse's mail box for review. DX: POLYCYTHEMIA REF PROV: RENETTA DANG INS: MEDICARE documented in this encounter [facility] 09-10-2022 Miscellaneous Notes GI Pre-Procedure Spoke with patient: Yes Confirmed date scheduled and patient report time: Yes Procedure Planned:Sigmoidoscopy Is the patient on blood thinners?no Procedure Instructions given to patient: Yes, and they verbalized their understanding of instructions given Patient instructed to take prescribed preparation prior to procedure:Yes, and they verbalized their understanding of instructions given Patient instructed to have family/friend present for procedure transport home:Patient/patient customer operations representative was told that if they do not have a responsible adult accompany them to their procedure; and remain in the endoscopy area until they are discharged; that their procedure cannot be done with sedation or anesthesia and may be cancelled. Any barriers to Patient learning: Patient/Patient Urgent Care Physician responded appropriately on phone. Type of instruction given: Verbal by telephone contact. Ying Daigle RN documented in this encounter [facility] 09-07-2022 Miscellaneous Notes Called [facility] at [phone]. Spoke with Eric regarding patient medication and claim was informed when they tried to run a test claim the co pay card is being denied indicating that the payment amount has exceeded limitations. Called Lisa at [phone]. Spoke with Toma regarding patient being enrolled in Cap program and maximizer program, of 6000, was informed that the funds have not been loaded on the patients co pay card as the last ticket was not submitted. And it will take another 3-5 business days before the funds will be loaded. Will communicate with patient via phone this afternoon. Francine Mclaughlin RN. documented in this encounter [facility] 09-01-2022 Miscellaneous Notes Called patient regarding his [facility]. Patient states that [facility] does not have his co pay info. Called [facility] in collaboration with patient. Spoke to customer operations representative Av regarding medication and copay, a test claimed was not successful and co pay card did not take over co pay. Lisa was included on the call spoke to a customer operations representative Mckay regarding patient copay and the maximizer program. Was informed that there was a glitch in there system that was preventing Co pay cards to be ran, estimated 5 buisness days for a result. The recommendation was that the patient reach out to [facility] regarding updated status on 09/07. Patient co pay info listed below. ID [id number] Group # [id number] [facility] [id number] PCN PDMI Validation: 08/29/2022-08/28/2023 Francine Mclaughlin RN Pt called in regards to his medication, he has question and concerns and was wondering if you could give him a call back. Thanks Adelia Grey documented in this encounter [facility] 08-31-2022 Miscellaneous Notes This has been addressed in a seperate encounter. Francine Mclaughlin RN Mr. Ritter called in trying to see if his authorization and prescription for Stelara was approved and sent to pharmacy on file. Ensured him that it had been and gave him the number on file to the pharmacy to verify. Sheri Rizzo Lining Printer fransico documented in this encounter [facility] 08-31-2022 Miscellaneous Notes Orders signed. Keim Lee APRN.CNP August 31, 2022 3:37 PM Returned patient call, patient states that [facility] doesn't have his prescription, informed patient that he has an authorization with [facility] specialty/ [facility]ng[facility]. Called [facility], and confirmed patient auth, and was provided that based on his insurance that the medication should be filled through [facility]. Will re pend order with [facility] specialty. Francine Mclaughlin RN documented in this encounter [facility] 07-19-2022 Note HNO ID: [id number] Author: Kemi Lee APRN.CNP Service: ? Author Type: Nurse Practitioner Type: Progress Notes Filed: 07/19/2022 12:09 PM Note Text: .Follow Up Visit SUBJECTIVE Cory Ordoñez Bettye [id number] 1955 presents to the clinic today for follow up of Crohn's disease. Last seen on 10/19/[address] Beckman. Review of IBD History (copied from previous notes and updated accordingly): Crohn's ileo-colitis, S/P STC with MARIO (2 stage end of 94, loop closure 95) 05/28/1994: From operative note: ...man with chronic Crohn's disease with a terminal ileal stricture with approximately 15 cm. of diseased bowel. This was perforated into the retroperitoneum in the right lower quadrant. It was also attached to the sigmoid colon where there was a fistula and also a marked stricturing of the sigmoid colon causing obstruction of the colon whichwas essentially closed loop so that the entire ascending colon, transversecolon and the small intestine were foreshortened and grossly distended with fecal material. The terminal ileum was also obstructing, causing chronicpartial obstruction of the distal small bowel. 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 Pena) penitentiary treatment with azathioprine May 1999 - 2016. On therapeutic dose had leukopenia - good response after surgery, no disease progression. Switched to adalimumab due to concern for lymphoma with intermediate teacher use. Humira started in 11/2016 - March 2019, SILVINO and side effects due to anti-ADA antibody formation Ustekinumab - 06/01/2019, stopped June 2021 Imuran May 1999 - 11/2016 oral methotrexate started in 2019 - present He notes great clinical response to Stelara- feels that it has been the best drug he has used to control Crohn's. Due to concern for cost issues when he switches to Medicare (thinking of retiring in 1 year), [address]. Elena was considering switch to EntyvAuthorea. At last visit in 06/2021, Dr. Elena also recommended change MTX from 20 mg po once per week to SQ injections at 18.75 mg q weekly. Changes and test results since last visit: Cory continues to feel well on Stelara Q8 weeks. Him and his recently retired and have been switched to Medicare for insurance, and he is concerned about how this will influence his Stelara prescription. He has filled out the Stelara patient assistance program and brought it in today. He was unable to get his 3rd Hep B vaccine to complete the series from a local pharmacy d/t his recent insurance change, so he is wondering if he can get that completed here. Current Clinical Symptoms # of bowel movements daily: 1-2 (pt reported normal) # of liquid stools daily: 0 Consistency: mushy Bloody bowel movements: no Urgency: no Abdominal pain: no Abdominal distention: no Nausea/vomiting: no Appetite: present Weight loss over last 3 months: yes: a couple lbs, which was intentional Weight today is 167 lbs, which he says is slightly below his normal because he has been doing more exercise lately with their recent move and doing repairs around the house. Current IBD Medications Ustekinumab 90 mg SQ Q8 weeks - LD: 07/08/2022 Methotrexate 0.6 mL Q weekly Current Outpatient Medications Medication Sig Dispense Refill methotrexate sodium 25 mg/mL soln Inject 0.6 mL subcutaneously one time a week. 4 mL 5 ustekinumab (STELARA) 90 mg/mL injection INJECT 1 ML UNDER THE SKIN EVERY 8 WEEKS 1 mL 6 fluorometholone (FML LIQUID FILM) 0.1 % ophthalmic suspension Use 1 Drop in the left eye once daily. Cholecalciferol, Vitamin D3, 50 mcg (2,000 unit) cap Take 1 capsule by mouth once daily. Calcium-Cholecalciferol, D3, (CALCIUM 500 + D) 500 mg(1,250mg) -400 unit per tablet Take 1 tablet by mouth twice daily. folic acid 1 mg tablet Take 1 tablet by mouth twice daily. Syringe with Needle, Disp, (BD TUBERCULIN SYRINGE) 1 mL 25 gauge x 5/8 Use for methotrexate injections 12 Each 3 No current facility-administered medications for this visit. ALLERGIES Allergen Reactions Penicillins Swelling PAST SURGICAL HISTORY Procedure Laterality Date ADENOIDECTOMY HX 1957 COLECTOMY PARTIAL W ANASTOM 05/28/1994 ileostomy PAST SURGICAL HISTORY OF 11/2015 cornea transplant and cataract left eye PAST SURGICAL HISTORY OF 02/2016 cornea transplant and cataract right eye 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 Periodic surveillance Personal Habits: -Smoking: no -ETOH: rarely -Illegal drug use/marijuana: no -NSAIDs: no -Recent antibiotics: no Extraintestinal Manifestations: Ocular [blurred vision or red eyes (uveitis, episcleritis)]: no- but does have a hx of a double cornea transplant (several years ago), and he takes eye drops to prevent transplant rejection. Dermat (more content not included)... [facility] 07-19-2022 History of Presen t illness Narrative .Follow Up Visit SUBJECTIVE Cory Ritter [id number] 1955 presents to the clinic today for follow up of Crohn's disease. Last seen on 10/19/[address] Beckman. Review of IBD History (copied from previous notes and updated accordingly): Crohn's ileo-colitis, S/P STC with MARIO (2 stage end of 94, loop closure 95) 05/28/1994: From operative note: ...man with chronic Crohn's disease with a terminal ileal stricture with approximately 15 cm. of diseased bowel. This was perforated into the retroperitoneum in the right lower quadrant. It was also attached to the sigmoid colon where there was a fistula and also a marked stricturing of the sigmoid colon causing obstruction of the colon whichwas essentially closed loop so that the entire ascending colon, transversecolon and the small intestine were foreshortened and grossly distended with fecal material. The terminal ileum was also obstructing, causing chronicpartial obstruction of the distal small bowel. 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 On therapeutic dose had leukopenia - good response after surgery, no disease progression. Switched to adalimumab due to concern for lymphoma with longterm use. Humira started in 11/2016 - March 2019, SILVINO and side effects due to anti-ADA antibody formation Ustekinumab - 06/01/2019, stopped June 2021 Imuran May 1999 - 11/2016 oral methotrexate started in 2019 - present He notes great clinical response to Stelara- feels that it has been the best drug he has used to control Crohn's. Due to concern for cost issues when he switches to Medicare (thinking of retiring in 1 year), Dr. Elena was considering switch to Entyvio. At last visit in 06/2021, Dr. Elena also recommended change MTX from 20 mg po once per week to SQ injections at 18.75 mg q weekly. Changes and test results since last visit: Cory continues to feel well on Stelara Q8 weeks. Him and his recently retired and have been switched to Medicare for insurance, and he is concerned about how this will influence his Stelara prescription. He has filled out the Stelara patient assistance program and brought it in today. He was unable to get his 3rd Hep B vaccine to complete the series from a local pharmacy d/t his recent insurance change, so he is wondering if he can get that completed here. Current Clinical Symptoms # of bowel movements daily: 1-2 (pt reported normal) # of liquid stools daily: 0 Consistency: mushy Bloody bowel movements: no Urgency: no Abdominal pain: no Abdominal distention: no Nausea/vomiting: no Appetite: present Weight loss over last 3 months: yes: a couple lbs, which was intentional Weight today is 167 lbs, which he says is slightly below his normal because he has been doing more exercise lately with their recent move and doing repairs around the house. Current IBD Medications Ustekinumab 90 mg SQ Q8 weeks - LD: 07/08/2022 Methotrexate 0.6 mL Q weekly Current Outpatient Medications Medication Sig Dispense Refill methotrexate sodium 25 mg/mL soln Inject 0.6 mL subcutaneously one time a week. 4 mL 5 ustekinumab (STELARA) 90 mg/mL injection INJECT 1 ML UNDER THE SKIN EVERY 8 WEEKS 1 mL 6 fluorometholone (FML LIQUID FILM) 0.1 % ophthalmic suspension Use 1 Drop in the left eye once daily. Cholecalciferol, Vitamin D3, 50 mcg (2,000 unit) cap Take 1 capsule by mouth once daily. Calcium-Cholecalciferol, D3, (CALCIUM 500 + D) 500 mg(1,250mg) -400 unit per tablet Take 1 tablet by mouth twice daily. folic acid 1 mg tablet Take 1 tablet by mouth twice daily. Syringe with Needle, Disp, (BD TUBERCULIN SYRINGE) 1 mL 25 gauge x 5/8 Use for methotrexate injections 12 Each 3 No current facility-administered medications for this visit. ALLERGIES Allergen Reactions Penicillins Swelling PAST SURGICAL HISTORY Procedure Laterality Date ADENOIDECTOMY HX 1957 COLECTOMY PARTIAL W ANASTOM 05/28/1994 ileostomy PAST SURGICAL HISTORY OF 11/2015 cornea transplant and cataract left eye PAST SURGICAL HISTORY OF 02/2016 cornea transplant and cataract right eye 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 Periodic surveillance Personal Habits: -Smoking: no -ETOH: rarely -Illegal drug use/marijuana: no -NSAIDs: no -Recent antibiotics: no Extraintestinal Manifestations: Ocular [blurred vision or red eyes (uveitis, episcleritis)]: no- but does have a hx of a double cornea transplant (several years ago), and he takes eye drops to prevent transplant rejection. Dermatologic (erythema nodosum, pyoderma): no Arthropathy/Arthralgia: yes- follows with Rheumatology in [place] (not [facility]). On MTX for joint pain. Left elbow has been more bothersome lately, and he is following up with his Derrick Operator in 1 month. PHYSICAL EXAMINATION BP 128/84 Pulse 66 Temp (Src) 96.8 (Temporal) Ht 5' 9 (1.75m) Wt 167 lb (75.8kg) SpO2 99% BMI 24.65 kg/(m^2). General Appearance: alert, oriented x 3, pleasant and in no acute distress, well-hydrated, well nourished Heart:regular rate and rhythm, no murmurs or gallops Abdomen: Not distended. Normal bowel sounds. Soft and non-tender. No masses or organomegaly., surgical scars present. Skin: no rashes or lesions Lymph: No cervical or supraclavicular adenopathy. REVIEWED ITEMS Recent Labs Component Latest Ref Rng & Units 10/19/2021 12/08/2021 WBC 3.70 - 11.00 k/uL 5.79 RBC 4.20 - 6.00 m/uL 5.53 Hemoglobin 13.0 - 17.0 g/dL 17.3 (H) Hematocrit 39.0 - 51.0 % 51.2 (H) MCV 80.0 - 100.0 fL 92.6 MCH 26.0 - 34.0 pG 31.3 MCHC 30.5 - 36.0 g/dL 33.8 RDW-CV 11.5 - 15.0 % 13.9 Platelet Count 150 - 400 k/uL 182 MPV 9.0 - 12.7 fL 9.4 Absolute nRBC <0.01 k/uL <0.01 Albumin 3.9 - 4.9 g/dL 4.4 Bilirubin, Total 0.2 - 1.3 mg/dL 0.4 Bilirubin, Conjug <0.2 mg/dL <0.2 Alkaline Phosphatase 38 - 113 U/L 64 AST 14 - 40 U/L 27 ALT 10 - 54 U/L 23 Protein, Total 6.3 - 8.0 g/dL 7.6 Creatinine 0.73 - 1.22 mg/dL 0.95 eGFR >=60 mL/min/1.73m 88 Calcium 8.5 - 10.2 mg/dL 9.9 Vitamin D 25 Hydroxy 31.0 - 80.0 ng/mL 68.2 Magnesium 1.7 - 2.3 mg/dL 2.3 Phosphorus 2.7 - 4.8 mg/dL 3.1 Creatinine, Ur Random (UCRR) 20.0 - 300.0 mg/dL 70.3 Assessment IMPRESSION (copied from previous notes and reflects today's medical decision making): Cory Ritter is a 66 year old male with PMHx of Crohn's since early - ileal and colonic. S/P STC with MARIO and DLI and then stoma closure in . 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 Dr. Zepeda had him switch MTX from oral to SQ in 06/2021- initially 25 mg q weeks but dose adjusted by Rheum to 18.75 mg q week. He is planing on retiring in early 2022 and based on high co-pay issues for Stelara, he had discussed switch to Entyvio with Dr. Elena- today I reviewed that we have had some recent success with getting Stelara costs covered for patients on Medicare so for now would continue on this and reassess as the time time gets closer to his prison. Last flex sig in 06/2021 showed no active inflammation- I recommended repeat late this year. Review of prior meds: - Azathioprine- [id number]; did well but stopped due to concern for lymphoma over time - Humira- [id number]; SILVINO and Ab development - Stelara- 2018 to present - Methotrexate- oral use since 2019 for enteropathic arthritis; switched to SQ in 06/[address] Elena He presents to clinic today for follow up and endorses feeling well overall from a GI standpoint. He recently retired and now has Medicare for insurance. He is concerned about financial costs for the Stelara, and brought in his completed patient assistance packet- will pass along to the nursing staff for review. Will plan to continue Stelara + MTX, order blood work, and plan for routine sigmoidoscopy later this year. Reviewed HM topics as noted below. Biologic statement of necessity: Mr. Ritter requires Stelara to maintain remission, and is tolerating it with no side effects. It is medically necessary to continue this medication otherwise he is at risk of flares, steroids, hospitalization, and possibly surgery. Biologics are not interchangeable. Health Maintenance: - Skin: has had skin CA- he pursues annual mole checks - Bones: last DEXA scan in 10/2021 showed osteopenia, but he has not followed up with any provider for this. He will follow up with his Derrick Operator for further recommendations. Since she is not a [facility] provider, I printed the results for him to take. Takes vit D (2,000 IU)- normal vit D level 06/2021 & 11/2021 - Vaccines: he gets annual flu shot and had Tdap (2017), Pneumovax (2019), PCV-20 (2021), Shingrix (2019), HAV (2016 & 2020; +Ab), Hep B (2021 x 2- needs 3rd one) and COVID + booster (2020). Will give 3rd Hep B vaccine today, to complete the series. - Deferred IBD RD and IBD Psych services at this time PLAN - 3rd Hep B vaccine today - Continue Stelara & MTX + folic acid=> will give Stelara patient assistance paperwork to nursing staff for review - Routine labs - Sigmoidoscopy to assess disease activity - issues addressed as above - Follow up with Dr. Beckman in 6 months PATIENT IS OK TO BE CONTACTED BY IBD GI RESEARCH TEAM TO EXPLORE PARTICIPATION IN RESEARCH STUDIES I spent a total of 39 minutes on the date of the service which included preparing to see the patient, [id number] patient care, completing clinical documentation, obtaining and/or reviewing separately obtained history, performing a medically appropriate examination, counseling and educating the patient/family/caregiver, ordering medications, tests, or procedures, and communicating with other HCPs (not separately reported). Kemi Lee APRN.CNP July 19, 2022 12:00 PM documented in this encounter [facility] 11-30-2021 History of Presen t illness Narrative On 11/30/2021, I had the pleasure of seeing Cory Ritter at the [facility]. He was referred for an opinion and advice regarding osteopenia. My findings and final recommendations will be communicated to the requesting health care provider by way of the shared medical record for internal providers or letter via the [employer] for external providers. Chief complaint: Osteopenia HPI: -10/2021 DEXA: lowest T-score -1.7, stable. -Fractures: none -Treatment: no prior treatment -no history of GERD -no history of parental hip fracture or OP. -he denies use of antiseizure medications or hormone replacement therapy -he reports history of skin cancer. He denies any history of radiation therapy. -he reports prior use of steroids for years. No current steroid use and has not taken steroids recently. 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 Periodic surveillance Family History Problem Relation Age of Onset Breast Cancer Mother Diabetes Mother mild diabetes Coronary Artery Disease Father angina, no procedures/no NC as of 04/05 GI Sister Crohn's GI Brother Crohn's Colon Cancer Other none Prostate Cancer Other none ALLERGIES Allergen Reactions Penicillins Swelling SOCIAL HISTORY: He lives in [place]. with 2 children. 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 Caffeine: 6 cups of coffee per day-advised decrease intake Alcohol: rare Smoking: never smoked Exercise: no routine exercise INTERVAL HISTORY He is here for recommendations regarding. No recent falls or fractures. No invasive dental work in the last three months and none planned for the next three months. Last dental exam was in 10/2021. No jaw or thigh pain. No recent infections. He takes Calcium and Vitamin D. Answers for HPI/ROS submitted by the patient on 11/26/2021 Fever : No Recent Unintentional Weight Change: No Eye Pain: Yes Eye Redness: Yes Vision Disturbance: Yes Eye Dryness: Yes Nose Bleeds: No Sores in your Mouth: No Trouble Swallowing: No Dry Mouth: No Chest Pain: No Leg Swelling: No A Cough: No Shortness of Breath: No Pain with Breathing: No Heartburn: No Abdominal Pain: No Diarrhea: No Black Tarry Stools: No Blood in Urine: No Pain or Burning with Urination: No Joint Pain or Stiffness: Yes Muscle Weakness: No Muscle Aches: Yes Joint Swelling: No Morning Stiffness in Joints: Yes A Rash: No Skin Color Changes: No Hair Loss: No Nail Changes: No Headaches: Yes Numbness: No Memory Loss: No Swollen Glands: No Current Outpatient Medications Medication Sig Syringe with Needle, Disp, (BD TUBERCULIN SYRINGE) 1 mL 25 gauge x 5/8 Use for methotrexate injections methotrexate sodium 25 mg/mL soln Inject 0.6 mL subcutaneously one time a week. ustekinumab (STELARA) 90 mg/mL injection INJECT 1 ML UNDER THE SKIN EVERY 8 WEEKS fluorometholone (FML LIQUID FILM) 0.1 % ophthalmic suspension Use 1 Drop in the left eye once daily. Cholecalciferol, Vitamin D3, 50 mcg (2,000 unit) cap Take 1 capsule by mouth once daily. Calcium-Cholecalciferol, D3, (CALCIUM 500 + D) 500 mg(1,250mg) -400 unit per tablet Take 1 tablet by mouth twice daily. folic acid 1 mg tablet Take 1 tablet by mouth twice daily. No current facility-administered medications for this visit. PHYSICAL EXAMINATION: BP 131/79 Pulse 62 Temp 36.7 C (98.1 F) (Temporal) Ht 175.3 cm (5' 9 ) Wt 81.6 kg (180 lb) BMI 26.58 kg/m General appearance: Well appearing, alert, in no acute distress, well-hydrated, well nourished. Skin: Skin color, texture, turgor normal, no suspicious rashes or lesions Oropharynx: Lips, mucosa, and tongue normal, teeth and gums normal, oropharynx normal Neck: Supple, no adenopathy Lungs: Lungs clear to auscultation. No wheezing, rhonchi, rales. Heart: RRR without murmur Abdomen: Normal abdominal exam, Abdomen soft, non-tender. Bowel sounds normal. No masses, organomegaly Neuro: Gait normal. Sensation grossly intact. JOINTS: TENDER JOINTS: none SWOLLEN JOINTS: none No tenderness to spine or SI joints Labs reviewed and discussed with the patient: Component Latest Ref Rng & Units 10/19/2021 WBC 3.70 - 11.00 k/uL 5.79 RBC 4.20 - 6.00 m/uL 5.53 Hemoglobin 13.0 - 17.0 g/dL 17.3 (H) Hematocrit 39.0 - 51.0 % 51.2 (H) MCV 80.0 - 100.0 fL 92.6 MCH 26.0 - 34.0 pG 31.3 MCHC 30.5 - 36.0 g/dL 33.8 RDW-CV 11.5 - 15.0 % 13.9 Platelet Count 150 - 400 k/uL 182 MPV 9.0 - 12.7 fL 9.4 Absolute nRBC <0.01 k/uL <0.01 Albumin 3.9 - 4.9 g/dL 4.4 Bilirubin, Total 0.2 - 1.3 mg/dL 0.4 Bilirubin, Conjug <0.2 mg/dL <0.2 Alkaline Phosphatase 38 - 113 U/L 64 AST 14 - 40 U/L 27 ALT 10 - 54 U/L 23 Protein, Total 6.3 - 8.0 g/dL 7.6 Hep B Core Ab, Total Negative Negative Hep C Antibody IA Negative Negative Hep B Surface Ag Negative Negative Hep B Surface Ab, Qual Negative Negative Component Latest Ref Rng & Units 06/26/2021 Protein, Total 6.3 - 8.0 g/dL 7.7 Albumin 3.9 - 4.9 g/dL 4.6 Calcium 8.5 - 10.2 mg/dL 10.3 (H) Bilirubin, Total 0.2 - 1.3 mg/dL 0.3 Alkaline Phosphatase 38 - 113 U/L 60 AST 14 - 40 U/L 30 Glucose 74 - 99 mg/dL 67 (L) BUN 9 - 24 mg/dL 13 Creatinine 0.73 - 1.22 mg/dL 0.88 Sodium 136 - 144 mmol/L 137 Potassium 3.7 - 5.1 mmol/L 4.3 Chloride 97 - 105 mmol/L 104 CO2 22 - 30 mmol/L 22 Anion Gap 9 - 18 mmol/L 11 ALT 10 - 54 U/L 23 eGFR- >60 eGFR-All Other Races . >60 Vitamin D 25 Hydroxy 31.0 - 80.0 ng/mL 77.9 STUDIES: 10/2021 DEXA: IMPRESSION: Osteopenia. There has been no significant interval change. LUMBAR SPINE: The bone mineral density from L1 through L4 is 0.972 grams per square centimeter which yields a T-score of -1.1 . This is not significantly changed . LEFT HIP: The bone mineral density of the total region of the hip is 0.923 grams per square centimeter which yields a T-score of -0.7 . . LEFT FEMORAL NECK: The bone mineral density of the femoral neck is 0.700 grams per square centimeter which yields a T-score of -1.7 . This is not significantly changed . RIGHT HIP: The bone mineral density of the total region of the hip is 0.970 grams per square centimeter which yields a T-score of -0.4 . . RIGHT FEMORAL NECK: The bone mineral density of the femoral neck is 0.736 grams per square centimeter which yields a T-score of -1.4 . . 10-year Fracture Risk (FRAX): Major osteoporotic fracture risk 10 % Hip fracture risk 2 % ASSESSMENT/PLAN: 1. Osteopenia: 66 year old male. 10/2021 DEXA: lowest T-score -1.7, stable. With history of Crohn's and enteropathic arthritis, with prior steroid use. No prior fractures. No prior treatment. With increased caffeine intake. -diagnosis discussed and handout on OP was given to the patient. - Will check urine ntx and OP labs today. -will make recommendations pending results -continue calcium and vit d -fall precautions -weight bearing exercise encouraged -next DEXA due 10/2023 2. Enteropathic arthritis: Crohn's since -continue f/u with GI and Rheumatology 3. General health maintenance -she was advised to f/u with her pcp for her general health concerns RTC in 4-5 months (has local [employer]) I spent a total of 20 minutes on the date of the service which included preparing to see the patient, [id number] patient care, completing clinical documentation, performing a medically appropriate examination, ordering medications, tests, or procedures and communicating results to the patient/family/caregiver. Mike Almeida APRN.KEVAN documented in this encounter [facility] documented as of this encounter (statuses as of 11/30/2021) [facility] History of Past illness Narrative* Problem Noted Date Resolved Date Arthralgia of both knees 04/14/2017 018 Pain in both lower extremities 04/14/2017 0 02/02/2018 TMJ arthralgia 05/15/2015 02/02/2018 Routine general medical exam ination at a health care facility 05/10/2011 05/15/2015 Overview: 04/22/08 -- establish care Other chronic dermatitis due to solar radiation 09/04/2008 02/02/2018 SOLAR LENGINES//DYSCHROMIA OTHER 09/04/2008 05/15/2015 NEVUS///BENIGN LUISANA SKIN FACE NEC 09/04/2008 06/25/2009 Unspecified diseases of blood and blood-forming organs 12/28/2005 06/25/2009 Overview: Chronic lymphopenia, per incidental lab finding 2005 Sciatica 05/15/2015 documented as of this encounter (statuses as of 07/19/2022) [facility] History of Past illness Narrative* Problem Noted Date Resolved Date Arthralgia of both knees 04/14/2017 018 Pain in both lower extremities 04/14/2017 0 02/02/2018 TMJ arthralgia 05/15/2015 02/02/2018 Routine general medical exam ination at a health care facility 05/10/2011 05/15/2015 Overview: 04/22/08 -- establish care Other chronic dermatitis due to solar radiation 09/04/2008 02/02/2018 SOLAR LENGINES//DYSCHROMIA OTHER 09/04/2008 05/15/2015 NEVUS///BENIGN LUISANA SKIN FACE NEC 09/04/2008 06/25/2009 Unspecified diseases of blood and blood-forming organs 12/28/2005 06/25/2009 Overview: Chronic lymphopenia, per incidental lab finding 2005 Sciatica 05/15/2015 documented as of this encounter (statuses as of 08/16/2022) [facility] of Past illness Narrative* Problem Noted Date Resolved Date Arthralgia of both knees 04/14/2017 018 Pain in both lower extremities 04/14/2017 0 02/02/2018 TMJ arthralgia 05/15/2015 02/02/2018 Routine general medical exam ination at a health care facility 05/10/2011 05/15/2015 Overview: 04/22/08 -- establish care Other chronic dermatitis due to solar radiation 09/04/2008 02/02/2018 SOLAR LENGINES//DYSCHROMIA OTHER 09/04/2008 05/15/2015 NEVUS///BENIGN LUISANA SKIN FACE NEC 09/04/2008 06/25/2009 Unspecified diseases of blood and blood-forming organs 12/28/2005 06/25/2009 Overview: Chronic lymphopenia, per incidental lab finding 2005 Sciatica 05/15/2015 documented as of this encounter (statuses as of 09/02/2022) [facility] of Past illness Narrative* Problem Noted Date Resolved Date Arthralgia of both knees 04/14/2017 018 Pain in both lower extremities 04/14/2017 0 02/02/2018 TMJ arthralgia 05/15/2015 02/02/2018 Routine general medical exam ination at a health care facility 05/10/2011 05/15/2015 Overview: 04/22/08 -- establish care Other chronic dermatitis due to solar radiation 09/04/2008 02/02/2018 SOLAR LENGINES//DYSCHROMIA OTHER 09/04/2008 05/15/2015 NEVUS///BENIGN LUISANA SKIN FACE NEC 09/04/2008 06/25/2009 Unspecified diseases of blood and blood-forming organs 12/28/2005 06/25/2009 Overview: Chronic lymphopenia, per incidental lab finding 2005 Sciatica 05/15/2015 documented as of this encounter (statuses as of 09/02/2022) [facility] History of Past illness Narrative* Problem Noted Date Resolved Date Arthralgia of both knees 04/14/2017 018 Pain in both lower extremities 04/14/2017 0 02/02/2018 TMJ arthralgia 05/15/2015 02/02/2018 Routine general medical exam ination at a health care facility 05/10/2011 05/15/2015 Overview: 04/22/08 -- establish care Other chronic dermatitis due to solar radiation 09/04/2008 02/02/2018 SOLAR LENGINES//DYSCHROMIA OTHER 09/04/2008 05/15/2015 NEVUS///BENIGN LUISANA SKIN FACE NEC 09/04/2008 06/25/2009 Unspecified diseases of blood and blood-forming organs 12/28/2005 06/25/2009 Overview: Chronic lymphopenia, per incidental lab finding 2005 Sciatica 05/15/2015 documented as of this encounter (statuses as of 09/03/2022) [facility] History of Past illness Narrative* Problem Noted Date Resolved Date Arthralgia of both knees 04/14/2017 018 Pain in both lower extremities 04/14/2017 0 02/02/2018 TMJ arthralgia 05/15/2015 02/02/2018 Routine general medical exam ination at a health care facility 05/10/2011 05/15/2015 Overview: 04/22/08 -- establish care Other chronic dermatitis due to solar radiation 09/04/2008 02/02/2018 SOLAR LENGINES//DYSCHROMIA OTHER 09/04/2008 05/15/2015 NEVUS///BENIGN LUISANA SKIN FACE NEC 09/04/2008 06/25/2009 Unspecified diseases of blood and blood-forming organs 12/28/2005 06/25/2009 Overview: Chronic lymphopenia, per incidental lab finding 2005 Sciatica 05/15/2015 documented as of this encounter (statuses as of 09/07/2022) [facility] History of Past illness Narrative* Problem Noted Date Resolved Date Arthralgia of both knees 04/14/2017 018 Pain in both lower extremities 04/14/2017 0 02/02/2018 TMJ arthralgia 05/15/2015 02/02/2018 Routine general medical exam ination at a health care facility 05/10/2011 05/15/2015 Overview: 04/22/08 -- establish care Other chronic dermatitis due to solar radiation 09/04/2008 02/02/2018 SOLAR LENGINES//DYSCHROMIA OTHER 09/04/2008 05/15/2015 NEVUS///BENIGN LUISANA SKIN FACE NEC 09/04/2008 06/25/2009 Unspecified diseases of blood and blood-forming organs 12/28/2005 06/25/2009 Overview: Chronic lymphopenia, per incidental lab finding 2005 Sciatica 05/15/2015 documented as of this encounter (statuses as of 09/10/2022) [facility] History of Past illness Narrative* Problem Noted Date Resolved Date Arthralgia of both knees 04/14/2017 018 Pain in both lower extremities 04/14/2017 0 02/02/2018 TMJ arthralgia 05/15/2015 02/02/2018 Routine general medical exam ination at a health care facility 05/10/2011 05/15/2015 Overview: 04/22/08 -- establish care Other chronic dermatitis due to solar radiation 09/04/2008 02/02/2018 SOLAR LENGINES//DYSCHROMIA OTHER 09/04/2008 05/15/2015 NEVUS///BENIGN LUISANA SKIN FACE NEC 09/04/2008 06/25/2009 Unspecified diseases of blood and blood-forming organs 12/28/2005 06/25/2009 Overview: Chronic lymphopenia, per incidental lab finding 2005 Sciatica 05/15/2015 documented as of this encounter (statuses as of 09/13/2022) [facility] History of Past illness Narrative* Problem Noted Date Resolved Date Arthralgia of both knees 04/14/2017 018 Pain in both lower extremities 04/14/2017 0 02/02/2018 TMJ arthralgia 05/15/2015 02/02/2018 Routine general medical exam ination at a health care facility 05/10/2011 05/15/2015 Overview: 04/22/08 -- establish care Other chronic dermatitis due to solar radiation 09/04/2008 02/02/2018 SOLAR LENGINES//DYSCHROMIA OTHER 09/04/2008 05/15/2015 NEVUS///BENIGN LUISANA SKIN FACE NEC 09/04/2008 06/25/2009 Unspecified diseases of blood and blood-forming organs 12/28/2005 06/25/2009 Overview: Chronic lymphopenia, per incidental lab finding 2005 Sciatica 05/15/2015 documented as of this encounter (statuses as of 09/17/2022) [facility] History of Past illness Narrative* Problem Noted Date Resolved Date Arthralgia of both knees 04/14/2017 018 Pain in both lower extremities 04/14/2017 0 02/02/2018 TMJ arthralgia 05/15/2015 02/02/2018 Routine general medical exam ination at a health care facility 05/10/2011 05/15/2015 Overview: 04/22/08 -- establish care Other chronic dermatitis due to solar radiation 09/04/2008 02/02/2018 SOLAR LENGINES//DYSCHROMIA OTHER 09/04/2008 05/15/2015 NEVUS///BENIGN LUISANA SKIN FACE NEC 09/04/2008 06/25/2009 Unspecified diseases of blood and blood-forming organs 12/28/2005 06/25/2009 Overview: Chronic lymphopenia, per incidental lab finding 2005 Sciatica 05/15/2015 documented as of this encounter (statuses as of 09/18/2022) [facility] History of Past illness Narrative* Problem Noted Date Resolved Date Arthralgia of both knees 04/14/2017 018 Pain in both lower extremities 04/14/2017 0 02/02/2018 TMJ arthralgia 05/15/2015 02/02/2018 Routine general medical exam ination at a health care facility 05/10/2011 05/15/2015 Overview: 04/22/08 -- establish care Other chronic dermatitis due to solar radiation 09/04/2008 02/02/2018 SOLAR LENGINES//DYSCHROMIA OTHER 09/04/2008 05/15/2015 NEVUS///BENIGN LUISANA SKIN FACE NEC 09/04/2008 06/25/2009 Unspecified diseases of blood and blood-forming organs 12/28/2005 06/25/2009 Overview: Chronic lymphopenia, per incidental lab finding 2005 Sciatica 05/15/2015 documented as of this encounter (statuses as of 09/20/2022) [facility] History of Past illness Narrative* Problem Noted Date Resolved Date Arthralgia of both knees 04/14/2017 018 Pain in both lower extremities 04/14/2017 0 02/02/2018 TMJ arthralgia 05/15/2015 02/02/2018 Routine general medical exam ination at a health care facility 05/10/2011 05/15/2015 Overview: 04/22/08 -- establish care Other chronic dermatitis due to solar radiation 09/04/2008 02/02/2018 SOLAR LENGINES//DYSCHROMIA OTHER 09/04/2008 05/15/2015 NEVUS///BENIGN LUISANA SKIN FACE NEC 09/04/2008 06/25/2009 Unspecified diseases of blood and blood-forming organs 12/28/2005 06/25/2009 Overview: Chronic lymphopenia, per incidental lab finding 2005 Sciatica 05/15/2015 documented as of this encounter (statuses as of 09/21/2022) [facility] History of Past illness Narrative* Problem Noted Date Resolved Date Arthralgia of both knees 04/14/2017 018 Pain in both lower extremities 04/14/2017 0 02/02/2018 TMJ arthralgia 05/15/2015 02/02/2018 Routine general medical exam ination at a health care facility 05/10/2011 05/15/2015 Overview: 04/22/08 -- establish care Other chronic dermatitis due to solar radiation 09/04/2008 02/02/2018 SOLAR LENGINES//DYSCHROMIA OTHER 09/04/2008 05/15/2015 NEVUS///BENIGN LUISANA SKIN FACE NEC 09/04/2008 06/25/2009 Unspecified diseases of blood and blood-forming organs 12/28/2005 06/25/2009 Overview: Chronic lymphopenia, per incidental lab finding 2005 Sciatica 05/15/2015 documented as of this encounter (statuses as of 10/12/2022) [facility] History of Past illness Narrative* Problem Noted Date Resolved Date Arthralgia of both knees 04/14/2017 018 Pain in both lower extremities 04/14/2017 0 02/02/2018 TMJ arthralgia 05/15/2015 02/02/2018 Routine general medical exam ination at a health care facility 05/10/2011 05/15/2015 Overview: 04/22/08 -- establish care Other chronic dermatitis due to solar radiation 09/04/2008 02/02/2018 SOLAR LENGINES//DYSCHROMIA OTHER 09/04/2008 05/15/2015 NEVUS///BENIGN LUISANA SKIN FACE NEC 09/04/2008 06/25/2009 Unspecified diseases of blood and blood-forming organs 12/28/2005 06/25/2009 Overview: Chronic lymphopenia, per incidental lab finding 2005 Sciatica 05/15/2015 documented as of this encounter (statuses as of 11/10/2022) [facility] of Past illness Narrative* Problem Noted Date Diagnosed Date Resolved Date Arthralgia of both knees 04/14/201702/2018 Pain in both lower extremities 04/14/2017 02/02/2018 TMJ arthralgia 05/15/2015 02/02/2018 Routine general medical exam ination at a health care facility 05/10/2011 05/15/2015 Overview: 04/22/08 -- establish care Other chronic dermatitis due to solar radiation 09/04/2008 02/02/2018 SOLAR LENGINES//DYSCHROMIA OTHER 09/04/2008 05/15/2015 NEVUS///BENIGN LUISANA SKIN FACE NEC 09/04/2008 06/25/2009 Unspecified diseases of bloo d and blood-forming organs 12/28/2005 06/25/2009 Overview: Chronic lymphopenia, per incidental lab finding 2005 Sciatica 05/15/2015 documented as of this encounter (statuses as of 05/24/2023) [facility] History of Past illness Narrative* Problem Noted Date Diagnosed Date Resolved Date Arthralgia of both knees 04/14/201702/2018 Pain in both lower extremities 04/14/2017 02/02/2018 TMJ arthralgia 05/15/2015 02/02/2018 Routine general medical exam ination at a health care facility 05/10/2011 05/15/2015 Overview: 04/22/08 -- establish care Other chronic dermatitis due to solar radiation 09/04/2008 02/02/2018 SOLAR LENGINES//DYSCHROMIA OTHER 09/04/2008 05/15/2015 NEVUS///BENIGN LUISANA SKIN FACE NEC 09/04/2008 06/25/2009 Unspecified diseases of bloo d and blood-forming organs 12/28/2005 06/25/2009 Overview: Chronic lymphopenia, per incidental lab finding 2005 Sciatica 05/15/2015 documented as of this encounter (statuses as of 06/16/2023) [facility] History of Past illness Narrative* Problem Noted Date Diagnosed Date Resolved Date Arthralgia of both knees 04/14/201702/2018 Pain in both lower extremities 04/14/2017 02/02/2018 TMJ arthralgia 05/15/2015 02/02/2018 Routine general medical exam ination at a health care facility 05/10/2011 05/15/2015 Overview: 04/22/08 -- establish care Other chronic dermatitis due to solar radiation 09/04/2008 02/02/2018 SOLAR LENGINES//DYSCHROMIA OTHER 09/04/2008 05/15/2015 NEVUS///BENIGN LUISANA SKIN FACE NEC 09/04/2008 06/25/2009 Unspecified diseases of bloo d and blood-forming organs 12/28/2005 06/25/2009 Overview: Chronic lymphopenia, per incidental lab finding 2005 Sciatica 05/15/2015 documented as of this encounter (statuses as of 06/17/2023) [facility] History of Past illness Narrative* Problem Noted Date Diagnosed Date Resolved Date Arthralgia of both knees 04/14/201702/2018 Pain in both lower extremities 04/14/2017 02/02/2018 TMJ arthralgia 05/15/2015 02/02/2018 Routine general medical exam ination at a health care facility 05/10/2011 05/15/2015 Overview: 04/22/08 -- establish care Other chronic dermatitis due to solar radiation 09/04/2008 02/02/2018 SOLAR LENGINES//DYSCHROMIA OTHER 09/04/2008 05/15/2015 NEVUS///BENIGN LUISANA SKIN FACE NEC 09/04/2008 06/25/2009 Unspecified diseases of bloo d and blood-forming organs 12/28/2005 06/25/2009 Overview: Chronic lymphopenia, per incidental lab finding 2005 Sciatica 05/15/2015 documented as of this encounter (statuses as of 06/24/2023) [facility] note* Diagnosis Osteopenia, unspecified location- Primary Crohn's disease of small and large intestines with complication (HCC) [facility] Diagnosis Crohn's disease of both small and large intestine without complication (HCC)- Primary Regional enteritis of small intestine with large intestine Has received second dose of hepatitis B vaccine [facility] Diagnosis Crohn's disease of both small and large intestine with other complication (HCC) [facility] Diagnosis Crohn's disease of both small and large intestine with other complication (HCC) [facility] Diagnosis Polycythemia- Primary Polycythemia vera [facility] Diagnosis Crohn's disease of both small and large intestine without complication (HCC)- Primary Regional enteritis of small intestine with large intestine [facility] Diagnosis Foot pain, left- Primary Pain in limb Pain Generalized pain documented in this encounter [facility] for referral (narrative)* Outpatient Procedure (Routine) - Authorized Specialty Diagnoses / Procedures Referred By Glenis t Referred To Contact [facility] Diagnoses Crohn's disease of both small and large intestine without complication (HCC) Procedures SIGMOIDOSCOPY SIGMOIDOSCOPY FLX DX W/COLLJ SPEC BR/WA IF PFRMD Kemi Lee APRN.[employer] [address] [place] [address] [facility] [place] [address] [place] [address] Referral ID Status Reason Start Date Expiration Date Visits Requested Visits Authorized [id number] Authorized Auto-Generat ed Referral 2 07/19/2023 1 1 [facility] Diagnostic Procedure Only (Urgent) - Closed Specialty Diagnoses / Procedures Referred By Contlinda t Referred To Contact XR IMAGING Diagnoses Pain Procedures XR FOOT GENERAL 3V AP/LAT/OBL LEFT RADEX FOOT COMPLETE MINIMUM 3 VIEWS Laila Grant APRN.CNP [address] [place] [address] [place] [address] Referral ID Status Reason Start Date Expiration Date V isits Requested Visits Authorized [id number] Closed Auto-Generate d Referral 06/16/2023 07/15/2024 1 1 [facility] Advance Directives No Advanced Directives Records FoundDocuments on File Type Date Recorded Patient Urgent Care Physician Expl anation Advance Directive(s) Summary Purpose Family History No Family History Records FoundNo Family History Records Found Additional Source Comments Source Comments (unrecognize d section and content) In the event this informatio n is protected by the Federal Confidentiality of Alcohol and Drug Abuse Patient Records regulations: The Federal rules restrict any use of the information to criminally investigate or prosecute any alcohol or drug abuse patient.[facility] the event this information is protected by the Federal Confidentiality of Alcohol and Drug Abuse Patient Records regulations: The Federal rules restrict any use of the information to criminally investigate or prosecute any alcohol or drug abuse patient.[facility] the event this information is protected by the Federal Confidentiality of Alcohol and Drug Abuse Patient Records regulations: The Federal rules restrict any use of the information to criminally investigate or prosecute any alcohol or drug abuse patient.[facility] the event this information is protected by the Federal Confidentiality of Alcohol and Drug Abuse Patient Records regulations: The Federal rules restrict any use of the information to criminally investigate or prosecute any alcohol or drug abuse patient.[facility] the event this information is protected by the Federal Confidentiality of Alcohol and Drug Abuse Patient Records regulations: The Federal rules restrict any use of the information to criminally investigate or prosecute any alcohol or drug abuse patient.[facility] the event this information is protected by the Federal Confidentiality of Alcohol and Drug Abuse Patient Records regulations: The Federal rules restrict any use of the information to criminally investigate or prosecute any alcohol or drug abuse patient.[facility] the event this information is protected by the Federal Confidentiality of Alcohol and Drug Abuse Patient Records regulations: The Federal rules restrict any use of the information to criminally investigate or prosecute any alcohol or drug abuse patient.[facility] the event this information is protected by the Federal Confidentiality of Alcohol and Drug Abuse Patient Records regulations: The Federal rules restrict any use of the information to criminally investigate or prosecute any alcohol or drug abuse patient.[facility] the event this information is protected by the Federal Confidentiality of Alcohol and Drug Abuse Patient Records regulations: The Federal rules restrict any use of the information to criminally investigate or prosecute any alcohol or drug abuse patient.[facility] the event this information is protected by the Federal Confidentiality of Alcohol and Drug Abuse Patient Records regulations: The Federal rules restrict any use of the information to criminally investigate or prosecute any alcohol or drug abuse patient.[facility] Hospital[facility] the event this information is protected by the Federal Confidentiality of Alcohol and Drug Abuse Patient Records regulations: The Federal rules restrict any use of the information to criminally investigate or prosecute any alcohol or drug abuse patient.[facility] HospitalIn the event this information is protected by the Federal Confidentiality of Alcohol and Drug Abuse Patient Records regulations: The Federal rules restrict any use of the information to criminally investigate or prosecute any alcohol or drug abuse patient.[facility] HospitalIn the event this information is protected by the Federal Confidentiality of Alcohol and Drug Abuse Patient Records regulations: The Federal rules restrict any use of the information to criminally investigate or prosecute any alcohol or drug abuse patient.[facility] HospitalIn the event this information is protected by the Federal Confidentiality of Alcohol and Drug Abuse Patient Records regulations: The Federal rules restrict any use of the information to criminally investigate or prosecute any alcohol or drug abuse patient.[facility] HospitalIn the event this information is protected by the Federal Confidentiality of Alcohol and Drug Abuse Patient Records regulations: The Federal rules restrict any use of the information to criminally investigate or prosecute any alcohol or drug abuse patient.[facility] HospitalIn the event this information is protected by the Federal Confidentiality of Alcohol and Drug Abuse Patient Records regulations: The Federal rules restrict any use of the information to criminally investigate or prosecute any alcohol or drug abuse patient.[facility] HospitalIn the event this information is protected by the Federal Confidentiality of Alcohol and Drug Abuse Patient Records regulations: The Federal rules restrict any use of the information to criminally investigate or prosecute any alcohol or drug abuse patient.[facility] HospitalIn the event this information is protected by the Federal Confidentiality of Alcohol and Drug Abuse Patient Records regulations: The Federal rules restrict any use of the information to criminally investigate or prosecute any alcohol or drug abuse patient.[facility] HospitalIn the event this information is protected by the Federal Confidentiality of Alcohol and Drug Abuse Patient Records regulations: The Federal rules restrict any use of the information to criminally investigate or prosecute any alcohol or drug abuse patient.[facility] Reason for Visit (unrecogniz ed section and content) Specialty Diagnoses / Procedures Referred By Glenis elam Referred To Contact Rheumatology Diagnoses Osteopenia, unspecified location Crohn's disease of small and large intestines with complication (HCC) Procedures CONSULT TO RHEUMATOLOGY METABOLIC BONE OFFICE/OUTPATIENT [facility] 60-74 MINUTES Johnny Beckman MD [address] [place] [address] Referral ID Status Reason Start Date Expiration Date Visits Requested Visits Authorized [id number] Pending Review PCP Requested Referral 10/19/2021 10/19/2022 1 1 Reason Comments Crohns Reason Comments Orders 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 Reason Comments Education Of Patient/family Reason Comments Stelara to option care Reason Comments Results Reason Comments Stelara Plan of Treatment Reason Comments Covid Positive Reason Comments Trauma Left foot injury x 1 day Care Teams (unrecognized sec tion and content) Lactation Consultant Relationship Specialty Start Date End Date Lopez Ortiz MD [address] [place], [place] [id number] PCP - General Internal Medicine 07/25/18 Lactation Consultant Relationship Specialty Start Date End Date Lopez Ortiz MD [address] [facility] [address] PCP - General Internal Medicine 07/25/18 Lactation Consultant Relationship Specialty Start Date End Date Lopez Ortiz MD [address] [facility] [place] [address] PCP - General Internal Medicine 07/25/18 Lactation Consultant Relationship Specialty Start Date End Date Lopez Ortiz MD [address] [facility] [place] [address] PCP - General Internal Medicine 07/25/18 Lactation Consultant Relationship Specialty Start Date End Date Lopez Ortiz MD [address] [facility] [place] [address] PCP - General Internal Medicine 07/25/18 Lactation Consultant Relationship Specialty Start Date End Date oLpez Ortiz MD [address] [facility] [place] [address] PCP - General Internal Medicine 07/25/18 Lactation Consultant Relationship Specialty Start Date End Date Lopez Ortiz MD [address] [facility] [place] [address] PCP - General Internal Medicine 07/25/18 Lactation Consultant Relationship Specialty Start Date End Date Lopez Ortiz MD [address] [facility] [place] [address] PCP - General Internal Medicine 07/25/18 Lactation Consultant Relationship Specialty Start Date End Date Lopez Ortiz MD [address] [facility] [place] [address] PCP - General Internal Medicine 07/25/18 Lactation Consultant Relationship Specialty Start Date End Date Lopez Ortiz MD [address] [facility] [place] [address] PCP - General Internal Medicine 07/25/18 Lactation Consultant Relationship Specialty Start Date End Date Lopez Ortiz MD [address] [facility] [place] [address] PCP - General Internal Medicine 07/25/18 Lactation Consultant Relationship Specialty Start Date End Date Lopez Ortiz MD [address] [facility] [place] [address] PCP - General Internal Medicine 07/25/18 Lactation Consultant Relationship Specialty Start Date End Date Lopez Ortiz MD [address] [place], [place] [id number] PCP - General Internal Medicine 07/25/18 (unrecognized sect ion and content) No Status Records FoundNo Status Records Found INFORMATION SOURCE (unrecogn ized section and content) DATE CREATED AUTHOR AUTHOR'S ORGANIZ ATION 06/26/2023 [facility] FOR RECORDS PERTAINING TO PATIENTS WHO ARE OR HAVE BEEN ENROLLED IN A CHEMICAL DEPENDENCY/SUBSTANCEABUSE PROGRAM, SOME INFORMATION MAY BE OMITTED. This clinical summary was aggregated from multiple sources. Caution should be exercised in using it in the provision of clinical care. This summary normalizes information from multiple sources, and as a consequence, information in this document may materially change the coding, format and clinical context of patient data. In addition, data may be omitted in some cases. CLINICAL DECISIONS SHOULD BE BASED ON THE PRIMARY CLINICAL RECORDS. [employer] [facility]. provides no warranty or guarantee of the accuracy or completeness of information in this document.
[2023-09-23 12:20] LABS: Absolute Lymphocyte Count 0.99 X10^3/uL (0.83-4.51); Absolute Neutrophil Count 2.6 X10^3/uL (2.0-7.7); Basophil# 0.02 X10^3/uL; Basophil% 0.5 % (0-1); Eosinophil# 0.07 X10^3/uL; Eosinophils% 1.7 % (0-5); Hematocrit 52.3 % (40-54); Hemoglobin 16.8 g/dL (13.0-16.5); Lymphocyte # 0.99 X10^3/ul (0.83-4.51); Lymphocyte % 24.1 % (19-41); Mean Corp Hgb Conc 32.1 g/dL (32-36); Mean Corpuscular Hgb 30.1 pg (27.0-32.0); Mean Corpuscular Volume 93.6 fL (80-94); Mean Platelet Vol. 10.3 fl (6.2-12.0); Monocyte# 0.42 X10^3/uL; Monocyte% 10.2 % (0-10); NRBC Flagged by Analyzer 0 % (0-5); Neutrophil % 63.3 % (47-70); Platelet Count 168 K/mm3 (150-450); RBC Distribution Width CV 13.4 % (11.6-14.6); RBC Distribution Width SD 46.4 fl (35.1-43.9); Red Blood Count 5.59 M/mm3 (4.6-6.2); White Blood Count 4.1 K/mm3 (4.4-11.0)
[2023-09-23 12:53] LABS: ALB/GLOB Ratio 0.9 RATIO (0.9-2.4); AST(SGOT) 34 U/L (15-37); Alanine Aminotransfer ALT/SGPT 37 U/L (16-61); Albumin, Serum 3.6 g/dL (3.2-5.0); Alkaline Phosphatase 55 U/L (45-117); Anion Gap 3 (5-15); BUN 21 mg/dL (7-18); BUN/Creat Ratio 20.6 RATIO (10-20); Calcium,Total 9.1 mg/dL (8.5-10.1); Chloride 106 mmol/L (98-107); Creatinine, Serum 1.02 mg/dL (0.70-1.30); EST Glomerular Filtration Rate 77 mL/min (>60); Est Glom Filt Rate - Afr Amer 93 mL/min (>60); Globulin 3.8 g/dL (2.2-4.2); Glucose 98 mg/dL (74-106); Potassium 3.7 mmol/L (3.5-5.1); Protein, Total 7.4 g/dL (6.4-8.2); Sodium Level 138 mmol/L (136-145)
== END | disposition home or self-care (01) ==
LOC: MTLAB 09:50
PROVIDERS: PCP Internal Medicine; Referring Provider Internal Medicine Rheumatology; Visit Provider Internal Medicine Rheumatology
DX: M06.4 Inflammatory polyarthropathy (principal); K50.90 Crohn's disease, unspecified, without complications; Z79.899 Other long term (current) drug therapy
CPT/HCPCS: 36415; 80053; 85025

== ENCOUNTER → 2023-12-15 | Outpatient (CLI) | payer MEDICARE, OTHER, SELFPAY ==
[2023-12-15 15:30] LABS: Absolute Lymphocyte Count 0.81 X10^3/uL (0.83-4.51); Absolute Neutrophil Count 5.5 X10^3/uL (2.0-7.7); Basophil# 0.03 X10^3/uL; Basophil% 0.4 % (0-1); Eosinophil# 0.08 X10^3/uL; Eosinophils% 1.1 % (0-5); Hematocrit 47.1 % (40-54); Hemoglobin 15.7 g/dL (13.0-16.5); Lymphocyte # 0.81 X10^3/ul (0.83-4.51); Lymphocyte % 11.3 % (19-41); Mean Corp Hgb Conc 33.3 g/dL (32-36); Mean Corpuscular Hgb 30.5 pg (27.0-32.0); Mean Corpuscular Volume 91.5 fL (80-94); Mean Platelet Vol. 9.8 fl (6.2-12.0); Monocyte# 0.75 X10^3/uL; Monocyte% 10.4 % (0-10); NRBC Flagged by Analyzer 0 % (0-5); Neutrophil # 5.49 X10^3/uL (2.7-7.7); Neutrophil % 76.5 % (47-70); Platelet Count 196 K/mm3 (150-450); RBC Distribution Width CV 13.5 % (11.6-14.6); RBC Distribution Width SD 45.4 fl (35.1-43.9); Red Blood Count 5.15 M/mm3 (4.6-6.2); White Blood Count 7.2 K/mm3 (4.4-11.0)
[2023-12-15 16:07] LABS: ALB/GLOB Ratio 1.1 RATIO (0.9-2.4); AST(SGOT) 30 U/L (15-37); Alanine Aminotransfer ALT/SGPT 37 U/L (16-61); Alkaline Phosphatase 55 U/L (45-117); Anion Gap 6 (5-15); BUN 16 mg/dL (7-18); BUN/Creat Ratio 15.7 RATIO (10-20); Calcium,Total 9.8 mg/dL (8.5-10.1); Chloride 109 mmol/L (98-107); Creatinine, Serum 1.02 mg/dL (0.70-1.30); EST Glomerular Filtration Rate 77 mL/min (>60); Est Glom Filt Rate - Afr Amer 93 mL/min (>60); Globulin 3.8 g/dL (2.2-4.2); Glucose 100 mg/dL (74-106); Potassium 4.1 mmol/L (3.5-5.1); Protein, Total 7.8 g/dL (6.4-8.2); Sodium Level 139 mmol/L (136-145)
== END | disposition home or self-care (01) ==
LOC: MTLAB 13:31
PROVIDERS: PCP Internal Medicine; Referring Provider Internal Medicine Rheumatology; Visit Provider Internal Medicine Rheumatology
DX: M06.4 Inflammatory polyarthropathy (principal); K50.90 Crohn's disease, unspecified, without complications; Z79.899 Other long term (current) drug therapy
CPT/HCPCS: 36415; 80053; 85025

== ENCOUNTER → 2024-03-02 | Outpatient (CLI) | payer MEDICARE, OTHER, SELFPAY ==
[2024-03-02 10:07] LABS: Absolute Neutrophil Count 2.5 X10^3/uL (2.0-7.7); Basophil# 0.01 X10^3/uL; Basophil% 0.2 % (0-1); Eosinophil# 0.08 X10^3/uL; Hematocrit 50.9 % (40-54); Lymphocyte % 24.8 % (19-41); Mean Corp Hgb Conc 33.4 g/dL (32-36); Mean Corpuscular Hgb 30.7 pg (27.0-32.0); Mean Corpuscular Volume 91.9 fL (80-94); Mean Platelet Vol. 9.9 fl (6.2-12.0); Monocyte# 0.42 X10^3/uL; Monocyte% 10.4 % (0-10); NRBC Flagged by Analyzer 0 % (0-5); Neutrophil # 2.51 X10^3/uL (2.7-7.7); Neutrophil % 62.4 % (47-70); Platelet Count 181 K/mm3 (150-450); RBC Distribution Width CV 13.3 % (11.6-14.6); RBC Distribution Width SD 44.8 fl (35.1-43.9); Red Blood Count 5.54 M/mm3 (4.6-6.2)
[2024-03-02 11:07] LABS: ALB/GLOB Ratio 0.9 RATIO (0.9-2.4); AST(SGOT) 34 U/L (15-37); Alanine Aminotransfer ALT/SGPT 36 U/L (16-61); Albumin, Serum 3.6 g/dL (3.2-5.0); Alkaline Phosphatase 58 U/L (45-117); Anion Gap 8 (5-15); BUN 15 mg/dL (7-18); Calcium,Total 9.5 mg/dL (8.5-10.1); Chloride 110 mmol/L (98-107); EST Glomerular Filtration Rate 79 mL/min (>60); Est Glom Filt Rate - Afr Amer 96 mL/min (>60); Globulin 3.8 g/dL (2.2-4.2); Glucose 136 mg/dL (74-106); Protein, Total 7.4 g/dL (6.4-8.2); Sodium Level 140 mmol/L (136-145)
== END | disposition home or self-care (01) ==
LOC: MTLAB 09:00
PROVIDERS: PCP Internal Medicine; Referring Provider Internal Medicine Rheumatology; Visit Provider Internal Medicine Rheumatology
DX: M06.4 Inflammatory polyarthropathy (principal); K50.90 Crohn's disease, unspecified, without complications; Z79.899 Other long term (current) drug therapy
CPT/HCPCS: 36415; 80053; 85025

== ENCOUNTER → 2024-05-23 | Outpatient (CLI) | payer MEDICARE, OTHER, SELFPAY ==
[2024-05-23 12:22] LABS: Absolute Lymphocyte Count 0.85 X10^3/uL (0.83-4.51); Absolute Neutrophil Count 2.7 X10^3/uL (2.0-7.7); Basophil# 0.04 X10^3/uL; Basophil% 0.9 % (0-1); Eosinophil# 0.13 X10^3/uL; Hematocrit 48.9 % (40-54); Hemoglobin 16.1 g/dL (13.0-16.5); Lymphocyte # 0.85 X10^3/ul (0.83-4.51); Lymphocyte % 19.7 % (19-41); Mean Corp Hgb Conc 32.9 g/dL (32-36); Mean Corpuscular Hgb 30.5 pg (27.0-32.0); Mean Corpuscular Volume 92.6 fL (80-94); Mean Platelet Vol. 10.4 fl (6.2-12.0); Monocyte# 0.59 X10^3/uL; Monocyte% 13.7 % (0-10); NRBC Flagged by Analyzer 0 % (0-5); Neutrophil # 2.68 X10^3/uL (2.7-7.7); Neutrophil % 62.2 % (47-70); Platelet Count 164 K/mm3 (150-450); RBC Distribution Width CV 13.3 % (11.6-14.6); RBC Distribution Width SD 45.1 fl (35.1-43.9); Red Blood Count 5.28 M/mm3 (4.6-6.2); White Blood Count 4.3 K/mm3 (4.4-11.0)
[2024-05-23 12:34] LABS: AST(SGOT) 33 U/L (15-37); Alanine Aminotransfer ALT/SGPT 36 U/L (16-61); Albumin, Serum 3.7 g/dL (3.2-5.0); Alkaline Phosphatase 62 U/L (45-117); Anion Gap 4 (5-15); BUN 12 mg/dL (7-18); BUN/Creat Ratio 13.6 RATIO (10-20); Calcium,Total 9.6 mg/dL (8.5-10.1); Chloride 108 mmol/L (98-107); Creatinine, Serum 0.88 mg/dL (0.70-1.30); EST Glomerular Filtration Rate 91 mL/min (>60); Est Glom Filt Rate - Afr Amer 110 mL/min (>60); Globulin 3.8 g/dL (2.2-4.2); Glucose 92 mg/dL (74-106); Potassium 3.8 mmol/L (3.5-5.1); Protein, Total 7.5 g/dL (6.4-8.2); Sodium Level 137 mmol/L (136-145)
== END | disposition home or self-care (01) ==
LOC: MTLAB 09:28
PROVIDERS: PCP Internal Medicine; Referring Provider Internal Medicine Rheumatology; Visit Provider Internal Medicine Rheumatology
DX: M06.4 Inflammatory polyarthropathy (principal); K50.90 Crohn's disease, unspecified, without complications; Z79.899 Other long term (current) drug therapy
CPT/HCPCS: 36415; 80053; 85025

== ENCOUNTER → 2024-08-24 | Outpatient (CLI) | payer MEDICARE, OTHER, SELFPAY ==
[2024-08-24 10:23] LABS: Absolute Lymphocyte Count 0.92 X10^3/uL (0.83-4.51); Absolute Neutrophil Count 2.7 X10^3/uL (2.0-7.7); Basophil# 0.04 X10^3/uL; Basophil% 0.9 % (0-1); Eosinophil# 0.09 X10^3/uL; Eosinophils% 2.1 % (0-5); Hematocrit 50.9 % (40-54); Hemoglobin 16.9 g/dL (13.0-16.5); Lymphocyte # 0.92 X10^3/ul (0.83-4.51); Lymphocyte % 21.5 % (19-41); Mean Corp Hgb Conc 33.2 g/dL (32-36); Mean Corpuscular Hgb 30.5 pg (27.0-32.0); Mean Corpuscular Volume 91.9 fL (80-94); Mean Platelet Vol. 9.9 fl (6.2-12.0); Monocyte# 0.53 X10^3/uL; Monocyte% 12.4 % (0-10); NRBC Flagged by Analyzer 0 % (0-5); Neutrophil # 2.67 X10^3/uL (2.7-7.7); Neutrophil % 62.6 % (47-70); Platelet Count 172 K/mm3 (150-450); RBC Distribution Width CV 13.3 % (11.6-14.6); RBC Distribution Width SD 44.3 fl (35.1-43.9); Red Blood Count 5.54 M/mm3 (4.6-6.2); White Blood Count 4.3 K/mm3 (4.4-11.0)
[2024-08-24 11:04] LABS: AST(SGOT) 28 U/L (15-37); Alanine Aminotransfer ALT/SGPT 33 U/L (16-61); Albumin, Serum 3.7 g/dL (3.2-5.0); Alkaline Phosphatase 74 U/L (45-117); Anion Gap 3 (5-15); BUN 20 mg/dL (7-18); BUN/Creat Ratio 19.6 RATIO (10-20); Calcium,Total 9.3 mg/dL (8.5-10.1); Chloride 108 mmol/L (98-107); Creatinine, Serum 1.02 mg/dL (0.70-1.30); EST Glomerular Filtration Rate 77 mL/min (>60); Est Glom Filt Rate - Afr Amer 93 mL/min (>60); Globulin 3.8 g/dL (2.2-4.2); Glucose 119 mg/dL (74-106); Protein, Total 7.5 g/dL (6.4-8.2); Sodium Level 138 mmol/L (136-145)
== END | disposition home or self-care (01) ==
LOC: MTLAB 08:46
PROVIDERS: PCP Internal Medicine; Referring Provider Internal Medicine Rheumatology; Visit Provider Internal Medicine Rheumatology
DX: M06.4 Inflammatory polyarthropathy (principal); Z79.899 Other long term (current) drug therapy
CPT/HCPCS: 36415; 80053; 85025

== ENCOUNTER → 2024-11-14 | Outpatient (CLI) | payer MEDICARE, OTHER, SELFPAY ==
[2024-11-14 12:25] LABS: Absolute Lymphocyte Count 0.78 X10^3/uL (0.83-4.51); Absolute Neutrophil Count 2.8 X10^3/uL (2.0-7.7); Basophil# 0.04 X10^3/uL; Eosinophil# 0.16 X10^3/uL; Eosinophils% 3.8 % (0-5); Hemoglobin 17.8 g/dL (13.0-16.5); Lymphocyte # 0.78 X10^3/ul (0.83-4.51); Lymphocyte % 18.5 % (19-41); Mean Corp Hgb Conc 34.2 g/dL (32-36); Mean Corpuscular Hgb 30.9 pg (27.0-32.0); Mean Corpuscular Volume 90.3 fL (80-94); Mean Platelet Vol. 9.4 fl (6.2-12.0); Monocyte# 0.41 X10^3/uL; Monocyte% 9.7 % (0-10); NRBC Flagged by Analyzer 0 % (0-5); Neutrophil # 2.81 X10^3/uL (2.7-7.7); Neutrophil % 66.8 % (47-70); Platelet Count 165 K/mm3 (150-450); RBC Distribution Width CV 13.3 % (11.6-14.6); RBC Distribution Width SD 43.4 fl (35.1-43.9); Red Blood Count 5.76 M/mm3 (4.6-6.2); White Blood Count 4.2 K/mm3 (4.4-11.0)
[2024-11-14 13:09] LABS: ALB/GLOB Ratio 1.3 RATIO (0.9-2.4); AST(SGOT) 31 U/L (<=37); Alanine Aminotransfer ALT/SGPT 25 U/L (<=46); Albumin, Serum 4.3 g/dL (3.4-4.8); Alkaline Phosphatase 63 U/L (40-129); Anion Gap 13 (5-15); BUN 15 mg/dL (4-19); BUN/Creat Ratio 15.2 RATIO (10-20); Calcium,Total 9.4 mg/dL (7.6-11.0); Carbon Dioxide 20.6 mmol/L (21.0-32.0); Chloride 104 mmol/L (98-108); Creatinine, Serum 0.97 mg/dL (0.70-1.20); EST Glomerular Filtration Rate 84 (>60); Globulin 3.2 g/dL (2.2-4.2); Glucose 125 mg/dL (70-99); Potassium 3.9 mmol/L (3.3-5.1); Protein, Total 7.5 g/dL (5.9-8.4); Sodium Level 137 mmol/L (133-145); Total Bilirubin 0.49 mg/dL (0.00-1.30)
[2024-11-14 19:38] LABS: CRP 3.21 mg/L (0.0-3.0); Iron 124 ug/dL (65-175); Iron Binding Capacity,Total 268 ug/dL (250-450); Iron Binding Capacity,Unsat 144 ug/dL (228-428)
[2024-11-14 19:41] LABS: Ferritin 456 ng/mL (37-417); Vitamin B12 392 pg/mL (180-914); Vitamin D,25 Hydroxy 41.3 ng/mL (30-100)
== END | disposition home or self-care (01) ==
PROVIDERS: PCP Internal Medicine; Referring Provider Internal Medicine Rheumatology; Visit Provider Internal Medicine Rheumatology
DX: K50.818 Crohn's disease of both small and large intestine with other complication (principal); E55.9 Vitamin D deficiency, unspecified; R53.83 Other fatigue
CPT/HCPCS: 36415; 80053; 82306; 82607; 82728; 83540; 83550; 84443; 84466; 85025; 86140; 86480

== ENCOUNTER → 2025-02-06 | Outpatient (CLI) | payer MEDICARE, OTHER, SELFPAY ==
[2025-02-06 16:00] LABS: Absolute Lymphocyte Count 1.03 X10^3/uL (0.83-4.51); Absolute Neutrophil Count 5.5 X10^3/uL (2.0-7.7); Basophil# 0.03 X10^3/uL; Basophil% 0.4 % (0-1); Eosinophil# 0.07 X10^3/uL; Hematocrit 47.4 % (40-54); Hemoglobin 15.8 g/dL (13.0-16.5); Lymphocyte # 1.03 X10^3/ul (0.83-4.51); Lymphocyte % 14.7 % (19-41); Mean Corp Hgb Conc 33.3 g/dL (32-36); Mean Corpuscular Hgb 30.8 pg (27.0-32.0); Mean Corpuscular Volume 92.4 fL (80-94); Mean Platelet Vol. 9.9 fl (6.2-12.0); Monocyte# 0.39 X10^3/uL; Monocyte% 5.6 % (0-10); NRBC Flagged by Analyzer 0 % (0-5); Neutrophil # 5.48 X10^3/uL (2.7-7.7); Platelet Count 188 K/mm3 (150-450); RBC Distribution Width CV 13.4 % (11.6-14.6); RBC Distribution Width SD 45.2 fl (35.1-43.9); Red Blood Count 5.13 M/mm3 (4.6-6.2)
[2025-02-06 17:34] LABS: ALB/GLOB Ratio 1.5 RATIO (0.9-2.4); AST(SGOT) 32 U/L (<=37); Alanine Aminotransfer ALT/SGPT 24 U/L (<=46); Albumin, Serum 4.3 g/dL (3.4-4.8); Alkaline Phosphatase 64 U/L (40-129); Anion Gap 14 (5-15); BUN 16 mg/dL (4-19); BUN/Creat Ratio 15.8 RATIO (10-20); Calcium,Total 9.6 mg/dL (7.6-11.0); Chloride 102 mmol/L (98-108); Creatinine, Serum 0.99 mg/dL (0.70-1.20); EST Glomerular Filtration Rate 83 (>60); Globulin 2.9 g/dL (2.2-4.2); Glucose 155 mg/dL (70-99); Protein, Total 7.2 g/dL (5.9-8.4); Sodium Level 137 mmol/L (133-145); Total Bilirubin 0.42 mg/dL (0.00-1.30)
== END | disposition home or self-care (01) ==
LOC: MTLAB 12:37
PROVIDERS: PCP Internal Medicine; Referring Provider Internal Medicine Rheumatology; Visit Provider Internal Medicine Rheumatology
DX: M06.4 Inflammatory polyarthropathy (principal); Z79.899 Other long term (current) drug therapy
CPT/HCPCS: 36415; 80053; 85025

== ENCOUNTER → 2025-05-03 | Outpatient (CLI) | payer MEDICARE, OTHER, SELFPAY ==
[2025-05-03 10:31] LABS: Hematocrit 46.2 % (40-54); Hemoglobin 15.6 g/dL (13.0-16.5); Immature Granulocytes Count 0.010 X10^3/uL (0.0-0.0); Mean Corp Hgb Conc 33.8 g/dL (32-36); Mean Corpuscular Volume 91.3 fL (80-94); Mean Platelet Vol. 9.7 fl (6.2-12.0); NRBC Flagged by Analyzer 0 % (0-5); Platelet Count 174 K/mm3 (150-450); RBC Distribution Width CV 13.4 % (11.6-14.6); RBC Distribution Width SD 44.8 fl (35.1-43.9); Red Blood Count 5.06 M/mm3 (4.6-6.2); White Blood Count 4.0 K/mm3 (4.4-11.0)
[2025-05-03 10:35] LABS: AST(SGOT) 27 U/L (<=37); Alanine Aminotransfer ALT/SGPT 19 U/L (<=46); Albumin, Serum 4.3 g/dL (3.4-4.8); Alkaline Phosphatase 68 U/L (40-129); Anion Gap 11 (5-15); BUN 15 mg/dL (4-19); BUN/Creat Ratio 16.4 RATIO (10-20); Calcium,Total 9.5 mg/dL (7.6-11.0); Carbon Dioxide 22.5 mmol/L (21.0-32.0); Chloride 105 mmol/L (98-108); Globulin 2.8 g/dL (2.2-4.2); Glucose 105 mg/dL (70-99); Potassium 4.3 mmol/L (3.3-5.1)
== END | disposition home or self-care (01) ==
LOC: MTLAB 08:57
PROVIDERS: PCP Internal Medicine; Referring Provider Internal Medicine Rheumatology; Visit Provider Internal Medicine Rheumatology
DX: M06.4 Inflammatory polyarthropathy (principal); Z79.899 Other long term (current) drug therapy
CPT/HCPCS: 36415; 80053; 85025

== ENCOUNTER → 2025-07-31 | Outpatient (CLI) | payer MEDICARE, OTHER, SELFPAY ==
[2025-07-31 15:10] LABS: Hematocrit 50.2 % (40-54); Hemoglobin 16.9 g/dL (13.0-16.5); Immature Granulocytes Count 0.030 X10^3/uL (0.0-0.0); Mean Corp Hgb Conc 33.7 g/dL (32-36); Mean Corpuscular Volume 92.4 fL (80-94); Mean Platelet Vol. 9.4 fl (6.2-12.0); NRBC Flagged by Analyzer 0 % (0-5); Platelet Count 180 K/mm3 (150-450); RBC Distribution Width CV 13.7 % (11.6-14.6); RBC Distribution Width SD 45.9 fl (35.1-43.9); Red Blood Count 5.43 M/mm3 (4.6-6.2); White Blood Count 5.6 K/mm3 (4.4-11.0)
[2025-07-31 15:47] LABS: AST(SGOT) 30 U/L (<=37); Alanine Aminotransfer ALT/SGPT 27 U/L (<=46); Albumin, Serum 4.4 g/dL (3.4-4.8); Alkaline Phosphatase 57 U/L (40-129); Anion Gap 13 (5-15); BUN 16 mg/dL (4-19); BUN/Creat Ratio 16.3 RATIO (10-20); Calcium,Total 9.9 mg/dL (7.6-11.0); Carbon Dioxide 24.8 mmol/L (21.0-32.0); Chloride 103 mmol/L (98-108); Globulin 3.1 g/dL (2.2-4.2); Glucose 100 mg/dL (70-99); Potassium 3.7 mmol/L (3.3-5.1)
== END | disposition home or self-care (01) ==
LOC: MTLAB 13:38
PROVIDERS: PCP Internal Medicine; Referring Provider Internal Medicine Rheumatology; Visit Provider Internal Medicine Rheumatology
DX: M06.4 Inflammatory polyarthropathy (principal); Z79.899 Other long term (current) drug therapy
CPT/HCPCS: 36415; 80053; 85025